=== PATIENT | male | born 1970 | race Caucasian/White ===

== ENCOUNTER 2016-12-07 22:09 | Observation (INO) | payer OTHER ==
[~2016-12-07] VITALS: Ht 180.3 cm; Wt 226.7 kg
[~2016-12-07 22:09] MED LIST: ADULT LOW DOSE81 M1 PO; ADVAIR 250/501 DISK IH; ANAPROX DS550 M1 PO; ASPIRIN81 M1 PO; Advair 250/50 Diskus IH; BENTYL20 MG PO; DICYCLOMINE HCL10 MG PO; DIOVAN80 MG PO; DOXYCYCLINE HY100 MG PO; FLEXERIL10 MG PO; Ferrous Gluconate PO; HYDROCHLOROTHIA25 MG PO; IBUPROFEN800 MG PO; INDOMETHACIN25 MG PO; K-DUR20 MEQ PO; KLOR-CON M2020 MEQ PO; KLOR-CON20 MEQ PO; LASIX2 MG/1 ML PO; LASIX40 MG PO; METFORMIN HCL1000 MG PO; METFORMIN HCL500 MG PO; METOCLOPRAMIDE10 MG PO; METOPROLOL SUCC50 MG PO; METOPROLOL TAR100 MG PO; NAPROSYN500 MG PO; PANTOPRAZOLE SO40 MG PO; PEPCID20 MG PO; POTASSIUM20 MEQ/11 PO; PRAVACHOL10 MG PO; PRAVASTATIN SOD40 MG PO; PREDNISONE10 MG PO; PREDNISONE20 M1 PO; PREDNISONE5 MG PO; PREDNISONE50 MG PO; PROTONIX40 MG PO; SPIRONOLACTONE25 MG PO; TOPROL XL50 MG PO; TYLENOL WITH C1 EACH PO; ZANTAC150 MG PO; ZOFRAN8 MG PO
[2016-12-07 23:19] LABS: HEMATOCRIT 38.1 % (38.0-50.0); MCH 25.5 PG (29.0-34.0); MCHC 32.5 G/DL (30.0-36.0); MCV 78.2 FL (86-99); MEAN PLAT.VOLUME 10.5 uM^3 (9.0-12.4); PLATELET COUNT 228 K/uL (156-360); RBC DIS.WIDTH-CV 15.7 % (11.8-14.6); RBC DIS.WIDTH-SD 43.3 % (39-53); RED BLOOD COUNT 4.87 M/uL (4.00-5.50); WHITE BLOOD COUNT 9.5 K/uL (4.1-10.2)
[2016-12-07 23:33] LABS: CHLORIDE 103 mEq/L (99-109); SODIUM 138 mEq/L (136-147)
[2016-12-07 23:35] LABS: GLUCOSE 107 mg/dL (70-99)
[2016-12-07 23:36] LABS: ANION GAP 12 MEQ/L (2-14)
[2016-12-07 23:37] LABS: TOTAL BILIRUBIN 0.5 mg/dL (0.0-1.0)
[2016-12-07 23:39] LABS: ALKALINE PHOSPHATASE 86 IU/L (3-129); GFR ESTIMATE (CALCULATED) > 59 mL/min/
[2016-12-07 23:40] LABS: UREA NITROGEN (BUN) 13 mg/dL (9-23)
[2016-12-07 23:41] LABS: DIRECT BILIRUBIN 0.2 mg/dL (0.0-0.3); TROP-I INTERPRETATION NEGATIVE; TROPONIN-I 0.02 ng/mL (0.0-0.30)
[2016-12-07 23:42] LABS: LIPASE 33 U/L (1.0-51.0)
[2016-12-08 01:30] LABS: TROP-I INTERPRETATION NEGATIVE; TROPONIN-I < 0.01 ng/mL (0.0-0.30)
[2016-12-08 01:50] VITALS: BP 147/73
[2016-12-08 05:04] VITALS: BP 126/71
[2016-12-08 07:15] LABS: TROP-I INTERPRETATION NEGATIVE; TROPONIN-I < 0.01 ng/mL (0.0-0.30)
[2016-12-08 08:00] VITALS: BP 141/69
[2016-12-08 12:23] LABS: TROP-I INTERPRETATION NEGATIVE; TROPONIN-I < 0.01 ng/mL (0.0-0.30)
[2016-12-08] MEDS ORDERED: NEXIUM40 MG PO (13:28)
== END 2016-12-08 14:06 | disposition home or self-care (01) ==
LOC: EME 22:09 → EDOF 12-08 00:20 → 5WEST 12-08 01:13
PROVIDERS: Emergency Medicine; Physician Assistant
DX: R07.9 Chest pain, unspecified (principal); R10.13 Epigastric pain; L25.9 Unspecified contact dermatitis, unspecified cause; G89.29 Other chronic pain; K21.9 Gastro-esophageal reflux disease without esophagitis; I10 Essential (primary) hypertension; E11.9 Type 2 diabetes mellitus without complications; D86.0 Sarcoidosis of lung; G47.33 Obstructive sleep apnea (adult) (pediatric); D53.9 Nutritional anemia, unspecified; E66.01 Morbid (severe) obesity due to excess calories; Z68.44 Body mass index [BMI] 60.0-69.9, adult; Z82.49 Family history of ischemic heart disease and other diseases of the circulatory system; Z79.82 Long term (current) use of aspirin; Z88.0 Allergy status to penicillin; Z88.8 Allergy status to other drugs, medicaments and biological substances
CPT/HCPCS: 71020; 80048; 80076; 83690; 84484; 85027; 93005; 99281; 99285; G0378; J1200; J1650

== ENCOUNTER 2016-12-15 12:35 | Emergency (ER) | payer OTHER ==
[~2016-12-15] VITALS: Ht 180.3 cm; Wt 219.8 kg
[~2016-12-15 12:35] MED LIST changes: +NEXIUM40 MG PO
[2016-12-15 13:49] LABS: HEMATOCRIT 38.1 % (38.0-50.0); MCH 25.5 PG (29.0-34.0); MCHC 33.1 G/DL (30.0-36.0); MCV 77.1 FL (86-99); MEAN PLAT.VOLUME 10.4 uM^3 (9.0-12.4); PLATELET COUNT 194 K/uL (156-360); RBC DIS.WIDTH-CV 16.2 % (11.8-14.6); RBC DIS.WIDTH-SD 43.8 % (39-53); RED BLOOD COUNT 4.94 M/uL (4.00-5.50); WHITE BLOOD COUNT 9.6 K/uL (4.1-10.2)
[2016-12-15 13:54] LABS: CHLORIDE 103 mEq/L (99-109); POTASSIUM 4.1 mEq/L (3.7-5.4); SODIUM 138 mEq/L (136-147)
[2016-12-15 13:56] LABS: GLUCOSE 97 mg/dL (70-99)
[2016-12-15 13:57] LABS: ANION GAP 9 MEQ/L (2-14)
[2016-12-15 14:00] LABS: GFR ESTIMATE (CALCULATED) > 59 mL/min/
[2016-12-15 14:01] LABS: UREA NITROGEN (BUN) 12 mg/dL (9-23)
[2016-12-15 14:04] LABS: TROP-I INTERPRETATION NEGATIVE; TROPONIN-I < 0.01 ng/mL (0.0-0.30)
[2016-12-15 16:51] VITALS: BP 168/84
== END 2016-12-15 16:30 | disposition home or self-care (01) ==
LOC: EME 12:35
DX: E11.43 Type 2 diabetes mellitus with diabetic autonomic (poly)neuropathy (principal); K21.9 Gastro-esophageal reflux disease without esophagitis; J45.909 Unspecified asthma, uncomplicated; I10 Essential (primary) hypertension; D86.9 Sarcoidosis, unspecified; E66.01 Morbid (severe) obesity due to excess calories; Z68.44 Body mass index [BMI] 60.0-69.9, adult; G47.30 Sleep apnea, unspecified
CPT/HCPCS: 71020; 80048; 84484; 85027; 93005; 99281; 99284

== ENCOUNTER 2017-01-06 06:28 | Emergency (ER) | payer SELFPAY ==
[~2017-01-06] VITALS: Ht 180.3 cm; Wt 220.0 kg
[2017-01-06] MEDS ORDERED: PERCOCET 5/31 TABLET PO (08:53)
[2017-01-06] MEDS ORDERED: NAPROXEN500 MG PO (09:18)
[2017-01-06 09:34] VITALS: BP 177/91
== END 2017-01-06 09:35 | disposition home or self-care (01) ==
LOC: EXP 06:28 → EME 06:28 → EXP 09:35
PROC: 2W3TX1Z Immobilization of Left Foot using Splint (ICD-10-PCS; principal; 2017-01-06)
DX: S92.145A Nondisplaced dome fracture of left talus, initial encounter for closed fracture (principal); S83.412A Sprain of medial collateral ligament of left knee, initial encounter; E11.9 Type 2 diabetes mellitus without complications; I10 Essential (primary) hypertension; W00.0XXA Fall on same level due to ice and snow, initial encounter; Z88.1 Allergy status to other antibiotic agents; Z88.0 Allergy status to penicillin
CPT/HCPCS: 73502; 73564; 73590; 73610; 99281; 99284; J1885

== ENCOUNTER 2017-02-15 20:09 | Emergency (ER) | payer OTHER ==
[~2017-02-15] VITALS: Ht 180.3 cm; Wt 220.4 kg
[~2017-02-15 20:09] MED LIST changes: +NAPROXEN500 MG PO; +PERCOCET 5/31 TABLET PO
[2017-02-15 20:35] LABS: HEMATOCRIT 38.5 % (38.0-50.0); MCH 25.1 PG (29.0-34.0); MCHC 31.9 G/DL (30.0-36.0); MCV 78.6 FL (86-99); MEAN PLAT.VOLUME 10.1 uM^3 (9.0-12.4); PLATELET COUNT 233 K/uL (156-360); RBC DIS.WIDTH-CV 15.9 % (11.8-14.6); RBC DIS.WIDTH-SD 44.9 % (39-53); WHITE BLOOD COUNT 10.7 K/uL (4.1-10.2)
[2017-02-15 20:45] LABS: CHLORIDE 103 mEq/L (99-109); POTASSIUM 3.9 mEq/L (3.7-5.4); SODIUM 137 mEq/L (136-147)
[2017-02-15 20:47] LABS: GLUCOSE 143 mg/dL (70-99)
[2017-02-15] MEDS ORDERED: KLOR-CON20 MEQ PO (20:47)
[2017-02-15 20:48] LABS: ANION GAP 13 MEQ/L (2-14)
[2017-02-15] MEDS ORDERED: Mylanta (20:50)
[2017-02-15 20:51] LABS: UREA NITROGEN (BUN) 14 mg/dL (9-23)
[2017-02-15 20:54] LABS: GFR ESTIMATE (CALCULATED) > 59 mL/min/
[2017-02-15 20:55] LABS: TROP-I INTERPRETATION NEGATIVE; TROPONIN-I < 0.01 ng/mL (0.0-0.30)
[2017-02-15 21:05] LABS: D-DIMER ELISA 0.74 mg/L FEU (< 0.57)
[2017-02-15 21:39] LABS: INFLUENZA A VIRAL ANTIGEN NEGATIVE; INFLUENZA B VIRAL ANTIGEN NEGATIVE
[2017-02-15] MEDS ORDERED: MOTRIN800 MG PO (23:32)
[2017-02-15] MEDS ORDERED: ZITHROMAX500 MG PO (23:32)
[2017-02-15] MEDS ORDERED: ROBITUSSIN AC,T10 ML PO (23:32)
[2017-02-15 23:56] VITALS: BP 153/66
== END 2017-02-15 23:58 | disposition left against medical advice (07) ==
LOC: EME 20:09
PROVIDERS: Emergency Medicine
DX: J06.9 Acute upper respiratory infection, unspecified (principal); R07.81 Pleurodynia; J45.909 Unspecified asthma, uncomplicated; I10 Essential (primary) hypertension; K21.9 Gastro-esophageal reflux disease without esophagitis; D86.9 Sarcoidosis, unspecified; E66.01 Morbid (severe) obesity due to excess calories; Z68.44 Body mass index [BMI] 60.0-69.9, adult; G47.30 Sleep apnea, unspecified
CPT/HCPCS: 71020; 80048; 84484; 85027; 85379; 87502; 93005; 93970; 99281; 99285

== ENCOUNTER 2017-03-05 19:28 | Emergency (ER) | payer OTHER ==
[~2017-03-05] VITALS: Ht 180.3 cm; Wt 100.4 kg
[~2017-03-05 19:28] MED LIST changes: +MOTRIN800 MG PO; +Mylanta; +ROBITUSSIN AC,T10 ML PO; +ZITHROMAX500 MG PO
[2017-03-05 20:04] LABS: HEMATOCRIT 40.9 % (38.0-50.0); MCV 78.2 FL (86-99); MEAN PLAT.VOLUME 9.8 uM^3 (9.0-12.4); PLATELET COUNT 233 K/uL (156-360); RBC DIS.WIDTH-CV 15.6 % (11.8-14.6); RBC DIS.WIDTH-SD 44.1 % (39-53); RED BLOOD COUNT 5.23 M/uL (4.00-5.50); WHITE BLOOD COUNT 9.6 K/uL (4.1-10.2)
[2017-03-05 20:16] LABS: CHLORIDE 104 mEq/L (99-109); POTASSIUM 4.1 mEq/L (3.7-5.4); SODIUM 138 mEq/L (136-147)
[2017-03-05 20:17] LABS: GLUCOSE 137 mg/dL (70-99)
[2017-03-05 20:19] LABS: ANION GAP 10 MEQ/L (2-14)
[2017-03-05 20:21] LABS: GFR ESTIMATE (CALCULATED) > 59 mL/min/
[2017-03-05 20:22] LABS: UREA NITROGEN (BUN) 12 mg/dL (9-23)
[2017-03-05 20:29] LABS: TROP-I INTERPRETATION NEGATIVE; TROPONIN-I < 0.01 ng/mL (0.0-0.30)
[2017-03-05] MEDS ORDERED: NAPROSYN500 MG PO (20:40)
[2017-03-05] MEDS ORDERED: FLEXERIL10 MG PO (20:40)
[2017-03-05 20:53] VITALS: BP 160/98
== END 2017-03-05 20:57 | disposition home or self-care (01) ==
LOC: EME 19:28
DX: S46.002A Unspecified injury of muscle(s) and tendon(s) of the rotator cuff of left shoulder, initial encounter (principal); I10 Essential (primary) hypertension; X50.9XXA Other and unspecified overexertion or strenuous movements or postures, initial encounter; Y92.810 Car as the place of occurrence of the external cause; Z88.1 Allergy status to other antibiotic agents; Z88.0 Allergy status to penicillin; Z88.8 Allergy status to other drugs, medicaments and biological substances
CPT/HCPCS: 71020; 80048; 84484; 85027; 93005; 99281; 99283

== ENCOUNTER 2017-03-25 10:20 | Emergency (ER) | payer OTHER ==
[~2017-03-25] VITALS: Ht 180.3 cm; Wt 222.2 kg
[2017-03-25 10:40] LABS: HEMATOCRIT 39.7 % (38.0-50.0); MCH 25.1 PG (29.0-34.0); MCV 78.6 FL (86-99); MEAN PLAT.VOLUME 9.6 uM^3 (9.0-12.4); PLATELET COUNT 216 K/uL (156-360); RBC DIS.WIDTH-CV 15.8 % (11.8-14.6); RBC DIS.WIDTH-SD 44.6 % (39-53); RED BLOOD COUNT 5.05 M/uL (4.00-5.50); WHITE BLOOD COUNT 9.1 K/uL (4.1-10.2)
[2017-03-25 11:04] LABS: TROP-I INTERPRETATION NEGATIVE; TROPONIN-I < 0.01 ng/mL (0.0-0.30)
[2017-03-25 11:05] LABS: CHLORIDE 104 mEq/L (99-109); POTASSIUM 4.1 mEq/L (3.7-5.4); SODIUM 137 mEq/L (136-147)
[2017-03-25 11:07] LABS: GLUCOSE 164 mg/dL (70-99)
[2017-03-25 11:08] LABS: ANION GAP 9 MEQ/L (2-14)
[2017-03-25 11:11] LABS: GFR ESTIMATE (CALCULATED) > 59 mL/min/
[2017-03-25 11:12] LABS: UREA NITROGEN (BUN) 12 mg/dL (9-23)
[2017-03-25 12:22] VITALS: BP 138/90
== END 2017-03-25 12:39 | disposition home or self-care (01) ==
LOC: EME 10:20
DX: R07.89 Other chest pain (principal); E66.01 Morbid (severe) obesity due to excess calories; Z68.44 Body mass index [BMI] 60.0-69.9, adult; I10 Essential (primary) hypertension; J45.909 Unspecified asthma, uncomplicated; Z88.1 Allergy status to other antibiotic agents; Z88.8 Allergy status to other drugs, medicaments and biological substances; Z88.0 Allergy status to penicillin
CPT/HCPCS: 71020; 80048; 84484; 85027; 93005; 99281; 99284

== ENCOUNTER 2017-04-15 13:04 | Emergency (ER) | payer OTHER ==
[~2017-04-15] VITALS: Ht 180.3 cm; Wt 224.3 kg
[2017-04-15 14:08] LABS: HEMATOCRIT 38.7 % (38.0-50.0); MCH 24.8 PG (29.0-34.0); MCHC 31.3 G/DL (30.0-36.0); MCV 79.3 FL (86-99); MEAN PLAT.VOLUME 10.3 uM^3 (9.0-12.4); PLATELET COUNT 214 K/uL (156-360); RBC DIS.WIDTH-CV 15.3 % (11.8-14.6); RBC DIS.WIDTH-SD 43.8 % (39-53); RED BLOOD COUNT 4.88 M/uL (4.00-5.50); WHITE BLOOD COUNT 7.5 K/uL (4.1-10.2)
[2017-04-15 14:20] LABS: CHLORIDE 106 mEq/L (99-109); POTASSIUM 3.6 mEq/L (3.7-5.4); SODIUM 139 mEq/L (136-147)
[2017-04-15 14:21] LABS: GLUCOSE 155 mg/dL (70-99)
[2017-04-15 14:23] LABS: ANION GAP 10 MEQ/L (2-14)
[2017-04-15 14:25] LABS: GFR ESTIMATE (CALCULATED) > 59 mL/min/
[2017-04-15 14:26] LABS: UREA NITROGEN (BUN) 14 mg/dL (9-23)
[2017-04-15 14:30] LABS: TROP-I INTERPRETATION NEGATIVE; TROPONIN-I < 0.01 ng/mL (0.0-0.30)
[2017-04-15] MEDS ORDERED: INDOCIN50 MG PO (15:42)
[2017-04-15 16:13] VITALS: BP 170/84
== END 2017-04-15 16:14 | disposition home or self-care (01) ==
LOC: EME 13:04
DX: S20.219A Contusion of unspecified front wall of thorax, initial encounter (principal); S29.011A Strain of muscle and tendon of front wall of thorax, initial encounter; M75.82 Other shoulder lesions, left shoulder; W01.0XXA Fall on same level from slipping, tripping and stumbling without subsequent striking against object, initial encounter; J45.909 Unspecified asthma, uncomplicated; I10 Essential (primary) hypertension; K21.9 Gastro-esophageal reflux disease without esophagitis; D86.9 Sarcoidosis, unspecified; G47.30 Sleep apnea, unspecified
CPT/HCPCS: 71020; 80048; 84484; 85027; 93005; 99281; 99284

== ENCOUNTER 2017-05-17 22:04 | Emergency (ER) | payer OTHER ==
[~2017-05-17] VITALS: Ht 180.3 cm; Wt 227.6 kg
[~2017-05-17 22:04] MED LIST changes: +INDOCIN50 MG PO
[2017-05-17 22:51] LABS: HEMATOCRIT 35.9 % (38.0-50.0); MCH 25.1 PG (29.0-34.0); MCHC 31.8 G/DL (30.0-36.0); MCV 79.1 FL (86-99); MEAN PLAT.VOLUME 9.8 uM^3 (9.0-12.4); PLATELET COUNT 191 K/uL (156-360); RBC DIS.WIDTH-CV 15.9 % (11.8-14.6); RBC DIS.WIDTH-SD 45.6 % (39-53); RED BLOOD COUNT 4.54 M/uL (4.00-5.50); WHITE BLOOD COUNT 7.8 K/uL (4.1-10.2)
[2017-05-17 23:01] LABS: CHLORIDE 106 mEq/L (99-109); POTASSIUM 3.8 mEq/L (3.7-5.4); SODIUM 138 mEq/L (136-147)
[2017-05-17 23:03] LABS: GLUCOSE 145 mg/dL (70-99)
[2017-05-17 23:04] LABS: ANION GAP 9 MEQ/L (2-14)
[2017-05-17 23:07] LABS: GFR ESTIMATE (CALCULATED) > 59 mL/min/
[2017-05-17 23:08] LABS: UREA NITROGEN (BUN) 13 mg/dL (9-23)
[2017-05-17 23:11] LABS: TROP-I INTERPRETATION NEGATIVE; TROPONIN-I < 0.01 ng/mL (0.0-0.30)
[2017-05-18 00:36] LABS: TROP-I INTERPRETATION NEGATIVE; TROPONIN-I < 0.01 ng/mL (0.0-0.30)
[2017-05-18] MEDS ORDERED: NAPROSYN500 MG PO (00:58)
[2017-05-18 01:24] VITALS: BP 166/87
== END 2017-05-18 01:25 | disposition home or self-care (01) ==
LOC: EME 22:04
PROVIDERS: Emergency Medicine
DX: S46.912A Strain of unspecified muscle, fascia and tendon at shoulder and upper arm level, left arm, initial encounter (principal); X50.0XXA Overexertion from strenuous movement or load, initial encounter; I10 Essential (primary) hypertension; J45.909 Unspecified asthma, uncomplicated; D86.9 Sarcoidosis, unspecified; K21.9 Gastro-esophageal reflux disease without esophagitis; E66.01 Morbid (severe) obesity due to excess calories; Z68.44 Body mass index [BMI] 60.0-69.9, adult; F32.9 Major depressive disorder, single episode, unspecified; G43.909 Migraine, unspecified, not intractable, without status migrainosus; F19.10 Other psychoactive substance abuse, uncomplicated; G47.30 Sleep apnea, unspecified; K31.84 Gastroparesis; E55.9 Vitamin D deficiency, unspecified
CPT/HCPCS: 71010; 80048; 84484; 85027; 93005; 99281; 99285

== ENCOUNTER 2017-05-31 07:06 | Emergency (ER) | payer OTHER ==
[~2017-05-31] VITALS: Ht 180.3 cm; Wt 223.6 kg
[2017-05-31] MEDS ORDERED: VALIUM5 MG PO (09:56)
[2017-05-31] MEDS ORDERED: MOTRIN600 MG PO (09:56)
[2017-05-31 10:13] VITALS: BP 179/92
== END 2017-05-31 10:15 | disposition home or self-care (01) ==
LOC: EME 07:06
DX: S46.812A Strain of other muscles, fascia and tendons at shoulder and upper arm level, left arm, initial encounter (principal); M54.2 Cervicalgia; D86.9 Sarcoidosis, unspecified; K21.9 Gastro-esophageal reflux disease without esophagitis; I10 Essential (primary) hypertension; J45.909 Unspecified asthma, uncomplicated; G47.30 Sleep apnea, unspecified; E66.01 Morbid (severe) obesity due to excess calories; Z68.44 Body mass index [BMI] 60.0-69.9, adult
CPT/HCPCS: 71020; 99281; 99283

== ENCOUNTER 2017-06-09 09:57 | Emergency (ER) | payer OTHER ==
[~2017-06-09] VITALS: Ht 180.3 cm; Wt 226.0 kg
[~2017-06-09 09:57] MED LIST changes: +MOTRIN600 MG PO; +VALIUM5 MG PO
[2017-06-09 11:01] LABS: HEMATOCRIT 36.7 % (38.0-50.0); MCH 25.5 PG (29.0-34.0); MCHC 32.4 G/DL (30.0-36.0); MCV 78.6 FL (86-99); MEAN PLAT.VOLUME 10.5 uM^3 (9.0-12.4); PLATELET COUNT 191 K/uL (156-360); RBC DIS.WIDTH-CV 15.9 % (11.8-14.6); RBC DIS.WIDTH-SD 44.5 % (39-53); RED BLOOD COUNT 4.67 M/uL (4.00-5.50); WHITE BLOOD COUNT 8.2 K/uL (4.1-10.2)
[2017-06-09 11:16] LABS: CHLORIDE 107 mEq/L (99-109); POTASSIUM 4.1 mEq/L (3.7-5.4); SODIUM 139 mEq/L (136-147)
[2017-06-09 11:18] LABS: GLUCOSE 99 mg/dL (70-99)
[2017-06-09 11:19] LABS: ANION GAP 9 MEQ/L (2-14)
[2017-06-09 11:22] LABS: GFR ESTIMATE (CALCULATED) > 59 mL/min/; UREA NITROGEN (BUN) 14 mg/dL (9-23)
[2017-06-09 11:24] LABS: TROP-I INTERPRETATION NEGATIVE; TROPONIN-I < 0.01 ng/mL (0.0-0.30)
[2017-06-09 13:53] LABS: TROP-I INTERPRETATION NEGATIVE; TROPONIN-I < 0.01 ng/mL (0.0-0.30)
[2017-06-09 15:58] VITALS: BP 161/73
== END 2017-06-09 15:59 | disposition home or self-care (01) ==
LOC: EME 09:57
PROVIDERS: Emergency Medicine
DX: R07.9 Chest pain, unspecified (principal); G43.909 Migraine, unspecified, not intractable, without status migrainosus; D86.9 Sarcoidosis, unspecified; I10 Essential (primary) hypertension; E66.01 Morbid (severe) obesity due to excess calories; F32.9 Major depressive disorder, single episode, unspecified; J45.909 Unspecified asthma, uncomplicated; K21.9 Gastro-esophageal reflux disease without esophagitis; Z88.1 Allergy status to other antibiotic agents; Z88.0 Allergy status to penicillin
CPT/HCPCS: 71020; 78582; 80048; 84484; 85027; 93005; 99281; 99284; A9540; A9567; J0780; J1200; J1885

== ENCOUNTER 2017-06-19 11:20 | Emergency (ER) | payer OTHER ==
[~2017-06-19] VITALS: Ht 180.3 cm; Wt 225.3 kg
[2017-06-19 12:07] LABS: HEMATOCRIT 38.3 % (38.0-50.0); MCH 25.7 PG (29.0-34.0); MCHC 32.4 G/DL (30.0-36.0); MCV 79.3 FL (86-99); MEAN PLAT.VOLUME 10.1 uM^3 (9.0-12.4); PLATELET COUNT 208 K/uL (156-360); RBC DIS.WIDTH-CV 16.3 % (11.8-14.6); RBC DIS.WIDTH-SD 46.4 % (39-53); RED BLOOD COUNT 4.83 M/uL (4.00-5.50)
[2017-06-19 12:14] LABS: CHLORIDE 105 mEq/L (99-109); POTASSIUM 4.2 mEq/L (3.7-5.4); SODIUM 138 mEq/L (136-147)
[2017-06-19 12:16] LABS: GLUCOSE 103 mg/dL (70-99)
[2017-06-19 12:17] LABS: ANION GAP 9 MEQ/L (2-14)
[2017-06-19 12:20] LABS: GFR ESTIMATE (CALCULATED) > 59 mL/min/
[2017-06-19 12:21] LABS: UREA NITROGEN (BUN) 13 mg/dL (9-23)
[2017-06-19 12:24] LABS: TROP-I INTERPRETATION NEGATIVE; TROPONIN-I 0.02 ng/mL (0.0-0.30)
[2017-06-19 14:22] LABS: LIPASE 26 U/L (1.0-51.0)
[2017-06-19] MEDS ORDERED: MAALOX MAXIMUM355 ML PO (16:07)
[2017-06-19] MEDS ORDERED: PRILOSEC20 MG PO (16:07)
[2017-06-19 16:30] VITALS: BP 139/62
== END 2017-06-19 17:19 | disposition home or self-care (01) ==
LOC: EME 11:20
DX: R10.13 Epigastric pain (principal); R10.12 Left upper quadrant pain; K21.9 Gastro-esophageal reflux disease without esophagitis; K31.84 Gastroparesis; I10 Essential (primary) hypertension
CPT/HCPCS: 71020; 80048; 83690; 84484; 85027; 93005; 99281; 99284

== ENCOUNTER 2017-07-04 22:32 | Emergency (ER) | payer OTHER ==
[~2017-07-04] VITALS: Ht 180.3 cm; Wt 225.4 kg
[~2017-07-04 22:32] MED LIST changes: +MAALOX MAXIMUM355 ML PO; +PRILOSEC20 MG PO
[2017-07-04 23:18] LABS: HEMATOCRIT 35.9 % (38.0-50.0); MCH 25.7 PG (29.0-34.0); MCHC 32.6 G/DL (30.0-36.0); MCV 78.7 FL (86-99); MEAN PLAT.VOLUME 10.3 uM^3 (9.0-12.4); PLATELET COUNT 200 K/uL (156-360); RBC DIS.WIDTH-CV 15.9 % (11.8-14.6); RBC DIS.WIDTH-SD 45.1 % (39-53); RED BLOOD COUNT 4.56 M/uL (4.00-5.50); WHITE BLOOD COUNT 8.8 K/uL (4.1-10.2)
[2017-07-04 23:27] LABS: CHLORIDE 105 mEq/L (99-109); POTASSIUM 3.5 mEq/L (3.7-5.4); SODIUM 138 mEq/L (136-147)
[2017-07-04 23:29] LABS: GLUCOSE 156 mg/dL (70-99)
[2017-07-04 23:30] LABS: ANION GAP 9 MEQ/L (2-14)
[2017-07-04 23:33] LABS: GFR ESTIMATE (CALCULATED) > 59 mL/min/
[2017-07-04 23:34] LABS: UREA NITROGEN (BUN) 13 mg/dL (9-23)
[2017-07-04 23:41] LABS: TROP-I INTERPRETATION NEGATIVE; TROPONIN-I < 0.01 ng/mL (0.0-0.30)
[2017-07-05] MEDS ORDERED: PREDNISONE50 MG PO (00:10)
[2017-07-05 00:57] VITALS: BP 118/63
== END 2017-07-05 00:58 | disposition home or self-care (01) ==
LOC: EME → EDBD 22:32 → EME 07-05 00:58
DX: J45.909 Unspecified asthma, uncomplicated (principal); J44.9 Chronic obstructive pulmonary disease, unspecified; I10 Essential (primary) hypertension; E66.01 Morbid (severe) obesity due to excess calories; Z68.44 Body mass index [BMI] 60.0-69.9, adult
CPT/HCPCS: 71020; 80048; 84484; 85027; 93005; 94640; 99281; 99284; J7512

== ENCOUNTER 2017-07-08 07:52 | Emergency (ER) | payer OTHER ==
[~2017-07-08] VITALS: Ht 180.3 cm; Wt 222.4 kg
[2017-07-08 09:13] LABS: EOSINOPHIL (%) 0 % (0-5); HEMATOCRIT 38.5 % (38.0-50.0); IMMATURE GRANULOCYTE COUNT 0.1 K/uL; INSTRUMENT ABS NEUTROPHIL CT 8.4 K/uL; LYMPHOCYTE COUNT 2.3 K/uL (1.0-2.8); MCH 25.6 PG (29.0-34.0); MCHC 32.7 G/DL (30.0-36.0); MCV 78.3 FL (86-99); MEAN PLAT.VOLUME 10.4 uM^3 (9.0-12.4); MONOCYTE (%) 6.1 % (3-12); MONOCYTE COUNT 0.7 K/uL (0-0.8); NEUTROPHIL (%) 72.9 % (45-76); NEUTROPHIL COUNT 8.4 K/uL (1.8-6.4); PLATELET COUNT 210 K/uL (156-360); RBC DIS.WIDTH-CV 15.4 % (11.8-14.6); RED BLOOD COUNT 4.92 M/uL (4.00-5.50); WHITE BLOOD COUNT 11.5 K/uL (4.1-10.2)
[2017-07-08 09:26] LABS: CHLORIDE 102 mEq/L (99-109); POTASSIUM 4.2 mEq/L (3.7-5.4); SODIUM 135 mEq/L (136-147)
[2017-07-08 09:27] LABS: GLUCOSE 113 mg/dL (70-99)
[2017-07-08 09:29] LABS: ANION GAP 9 MEQ/L (2-14)
[2017-07-08 09:31] LABS: GFR ESTIMATE (CALCULATED) > 59 mL/min/
[2017-07-08 09:32] LABS: UREA NITROGEN (BUN) 11 mg/dL (9-23)
[2017-07-08 09:36] LABS: TROP-I INTERPRETATION NEGATIVE; TROPONIN-I < 0.01 ng/mL (0.0-0.30)
[2017-07-08] MEDS ORDERED: MOTRIN800 MG PO (10:57)
[2017-07-08 11:19] VITALS: BP 155/82
== END 2017-07-08 11:14 | disposition home or self-care (01) ==
LOC: EME 07:52
PROVIDERS: Emergency Medicine
DX: R07.89 Other chest pain (principal); I10 Essential (primary) hypertension; D86.9 Sarcoidosis, unspecified; E78.00 Pure hypercholesterolemia, unspecified; K31.84 Gastroparesis
CPT/HCPCS: 71010; 80048; 84484; 85025; 93005; 99281; 99283

== ENCOUNTER 2017-08-06 19:53 | Emergency (ER) | payer OTHER ==
[~2017-08-06] VITALS: Ht 180.3 cm; Wt 223.9 kg
[2017-08-06 21:37] LABS: HEMATOCRIT 38.4 % (38.0-50.0); MCH 25.6 PG (29.0-34.0); MCV 79.8 FL (86-99); MEAN PLAT.VOLUME 10.5 uM^3 (9.0-12.4); PLATELET COUNT 217 K/uL (156-360); RBC DIS.WIDTH-CV 15.7 % (11.8-14.6); RBC DIS.WIDTH-SD 45.5 % (39-53); RED BLOOD COUNT 4.81 M/uL (4.00-5.50); WHITE BLOOD COUNT 9.4 K/uL (4.1-10.2)
[2017-08-06 21:48] LABS: CHLORIDE 105 mEq/L (99-109); POTASSIUM 3.9 mEq/L (3.7-5.4); SODIUM 139 mEq/L (136-147)
[2017-08-06 21:49] LABS: GLUCOSE 140 mg/dL (70-99)
[2017-08-06 21:51] LABS: ANION GAP 14 MEQ/L (2-14)
[2017-08-06 21:53] LABS: GFR ESTIMATE (CALCULATED) > 59 mL/min/
[2017-08-06 21:54] LABS: UREA NITROGEN (BUN) 13 mg/dL (9-23)
[2017-08-06 22:03] LABS: TROP-I INTERPRETATION NEGATIVE; TROPONIN-I < 0.01 ng/mL (0.0-0.30)
[2017-08-06 23:42] LABS: TROP-I INTERPRETATION NEGATIVE; TROPONIN-I < 0.01 ng/mL (0.0-0.30)
[2017-08-06] MEDS ORDERED: MELOXICAM15 MG PO (23:53)
[2017-08-07 00:05] VITALS: BP 147/53
== END 2017-08-07 00:16 | disposition home or self-care (01) ==
LOC: EME 19:53
PROVIDERS: Physician Assistant
DX: G89.29 Other chronic pain (principal); R07.9 Chest pain, unspecified; I10 Essential (primary) hypertension; E66.01 Morbid (severe) obesity due to excess calories; Z68.44 Body mass index [BMI] 60.0-69.9, adult; D86.9 Sarcoidosis, unspecified
CPT/HCPCS: 71020; 80048; 84484; 85027; 93005; 99281; 99284

== ENCOUNTER 2017-08-22 19:34 | Emergency (ER) | payer OTHER ==
[~2017-08-22] VITALS: Ht 180.3 cm; Wt 227.2 kg
[~2017-08-22 19:34] MED LIST changes: +MELOXICAM15 MG PO
[2017-08-22 20:16] LABS: HEMATOCRIT 37.5 % (38.0-50.0); MCH 26.1 PG (29.0-34.0); MCHC 32.5 G/DL (30.0-36.0); MCV 80.3 FL (86-99); PLATELET COUNT 188 K/uL (156-360); RBC DIS.WIDTH-CV 15.8 % (11.8-14.6); RBC DIS.WIDTH-SD 45.3 % (39-53); RED BLOOD COUNT 4.67 M/uL (4.00-5.50); WHITE BLOOD COUNT 9.4 K/uL (4.1-10.2)
[2017-08-22 20:26] LABS: ADD MIUA? YES; BILIRUBIN NEGATIVE; BLOOD NEGATIVE; COLOR YELLOW ((YELLOW)); GLUCOSE (STRIP) NEGATIVE; KETONES NEGATIVE; LEUKOCYTES NEGATIVE; NITRITE NEGATIVE; PROTEIN (STRIP) 30; SPECIFIC GRAVITY 1.027 (1.000-1.030)
[2017-08-22 20:26] LABS: CHLORIDE 107 mEq/L (99-109); POTASSIUM 3.7 mEq/L (3.7-5.4); SODIUM 140 mEq/L (136-147)
[2017-08-22 20:28] LABS: GLUCOSE 125 mg/dL (70-99)
[2017-08-22 20:28] LABS: BACTERIA NONE SEEN /HPF; EPITHELIAL CELLS RARE /HPF; MUCUS TRACE /LPF; RED BLOOD CELLS 0-5 /HPF (0-5); UCUL ADDED? NO; WHITE BLOOD CELLS 0-5 /HPF (0-5)
[2017-08-22 20:29] LABS: ANION GAP 13 MEQ/L (2-14)
[2017-08-22 20:30] LABS: TOTAL BILIRUBIN 0.5 mg/dL (0.0-1.0)
[2017-08-22 20:31] LABS: ALKALINE PHOSPHATASE 86 IU/L (3-129)
[2017-08-22 20:32] LABS: GFR ESTIMATE (CALCULATED) > 59 mL/min/
[2017-08-22 20:33] LABS: UREA NITROGEN (BUN) 13 mg/dL (9-23)
[2017-08-22 22:03] LABS: TROP-I INTERPRETATION NEGATIVE; TROPONIN-I < 0.01 ng/mL (0.0-0.30)
[2017-08-23 00:14] VITALS: BP 159/72
== END 2017-08-23 00:14 | disposition home or self-care (01) ==
LOC: EME 19:34
DX: R10.12 Left upper quadrant pain (principal); J45.909 Unspecified asthma, uncomplicated; I10 Essential (primary) hypertension; K21.9 Gastro-esophageal reflux disease without esophagitis; E66.01 Morbid (severe) obesity due to excess calories; F32.9 Major depressive disorder, single episode, unspecified; F41.9 Anxiety disorder, unspecified; Z88.0 Allergy status to penicillin; Z88.8 Allergy status to other drugs, medicaments and biological substances
CPT/HCPCS: 74000; 76770; 80053; 81003; 84484; 85027; 93005; 99281; 99285

== ENCOUNTER 2017-09-28 10:29 | Emergency (ER) | payer OTHER ==
[~2017-09-28] VITALS: Ht 180.3 cm; Wt 226.8 kg
[2017-09-28] MEDS ORDERED: HYCODAN SYRUP480 ML PO (13:06)
[2017-09-28] MEDS ORDERED: DOXYCYCLINE HY100 MG PO (13:06)
[2017-09-28 13:20] VITALS: BP 168/74
== END 2017-09-28 13:21 | disposition home or self-care (01) ==
LOC: EME 10:29
DX: J20.9 Acute bronchitis, unspecified (principal); D86.9 Sarcoidosis, unspecified; J45.909 Unspecified asthma, uncomplicated; I10 Essential (primary) hypertension; F32.9 Major depressive disorder, single episode, unspecified; K21.9 Gastro-esophageal reflux disease without esophagitis; E66.01 Morbid (severe) obesity due to excess calories; F41.9 Anxiety disorder, unspecified; Z88.0 Allergy status to penicillin; Z88.1 Allergy status to other antibiotic agents
CPT/HCPCS: 71020; 93005; 99281; 99284

== ENCOUNTER 2017-10-02 13:13 | Emergency (ER) | payer OTHER ==
[~2017-10-02] VITALS: Ht 180.3 cm; Wt 227.0 kg
[~2017-10-02 13:13] MED LIST changes: +HYCODAN SYRUP480 ML PO
[2017-10-02] MEDS ORDERED: FLEXERIL10 MG PO (15:05)
[2017-10-02 15:53] VITALS: BP 174/88
== END 2017-10-02 15:55 | disposition home or self-care (01) ==
LOC: EME 13:13
DX: R07.89 Other chest pain (principal); S46.912A Strain of unspecified muscle, fascia and tendon at shoulder and upper arm level, left arm, initial encounter; X50.0XXA Overexertion from strenuous movement or load, initial encounter; I10 Essential (primary) hypertension; J45.909 Unspecified asthma, uncomplicated; K21.9 Gastro-esophageal reflux disease without esophagitis; E66.01 Morbid (severe) obesity due to excess calories; F32.9 Major depressive disorder, single episode, unspecified; F41.9 Anxiety disorder, unspecified; D86.9 Sarcoidosis, unspecified; Z88.0 Allergy status to penicillin; Z88.1 Allergy status to other antibiotic agents; Z88.8 Allergy status to other drugs, medicaments and biological substances
CPT/HCPCS: 93005; 99281; 99284

== ENCOUNTER 2017-10-22 19:47 | Emergency (ER) | payer OTHER ==
[~2017-10-22] VITALS: Ht 180.3 cm; Wt 228.0 kg
[2017-10-22 20:38] VITALS: BP 131/98
[2017-10-22 21:11] LABS: HEMATOCRIT 38.6 % (38.0-50.0); MCH 25.9 PG (29.0-34.0); MCHC 32.4 G/DL (30.0-36.0); MCV 79.9 FL (86-99); MEAN PLAT.VOLUME 10.6 uM^3 (9.0-12.4); PLATELET COUNT 223 K/uL (156-360); RBC DIS.WIDTH-CV 15.3 % (11.8-14.6); RED BLOOD COUNT 4.83 M/uL (4.00-5.50); WHITE BLOOD COUNT 9.6 K/uL (4.1-10.2)
[2017-10-22 21:23] LABS: CHLORIDE 105 mEq/L (99-109); POTASSIUM 3.6 mEq/L (3.7-5.4); SODIUM 139 mEq/L (136-147)
[2017-10-22 21:24] LABS: GLUCOSE 154 mg/dL (70-99)
[2017-10-22 21:26] LABS: ANION GAP 11 MEQ/L (2-14)
[2017-10-22 21:28] LABS: GFR ESTIMATE (CALCULATED) > 59 mL/min/
[2017-10-22 21:29] LABS: UREA NITROGEN (BUN) 13 mg/dL (9-23)
[2017-10-22 21:35] LABS: TROP-I INTERPRETATION NEGATIVE; TROPONIN-I < 0.01 ng/mL (0.0-0.30)
[2017-10-22 22:38] LABS: TOTAL BILIRUBIN 0.5 mg/dL (0.0-1.0)
[2017-10-22 22:39] LABS: ALKALINE PHOSPHATASE 89 IU/L (3-129)
[2017-10-22 22:41] LABS: DIRECT BILIRUBIN 0.2 mg/dL (0.0-0.3)
[2017-10-22 22:42] LABS: LIPASE 27 U/L (1.0-51.0)
[2017-10-22] MEDS ORDERED: HYCODAN SYRUP480 ML PO (22:50)
[2017-10-22] MEDS ORDERED: PROVENTIL HFA6.7 GM IH (22:50)
[2017-10-22 23:20] LABS: TROP-I INTERPRETATION NEGATIVE; TROPONIN-I < 0.01 ng/mL (0.0-0.30)
== END 2017-10-23 00:09 | disposition home or self-care (01) ==
LOC: EME 19:47
PROVIDERS: Emergency Medicine
DX: J20.9 Acute bronchitis, unspecified (principal); R07.89 Other chest pain; I10 Essential (primary) hypertension; E66.01 Morbid (severe) obesity due to excess calories; Z68.45 Body mass index [BMI] 70 or greater, adult
CPT/HCPCS: 71020; 80048; 80076; 83690; 84484; 85027; 93005; 94640; 99281; 99284

== ENCOUNTER 2017-10-26 23:23 | Emergency (ER) | payer OTHER ==
[~2017-10-26] VITALS: Ht 180.3 cm; Wt 230.6 kg
[~2017-10-26 23:23] MED LIST changes: +PROVENTIL HFA6.7 GM IH
[2017-10-27 01:24] LABS: EOSINOPHIL (%) 2.1 % (0-5); EOSINOPHIL COUNT 0.2 K/uL (0-0.3); HEMATOCRIT 37.3 % (38.0-50.0); IMMATURE GRANULOCYTE (%) 0.4 % (0.0-0.7); INSTRUMENT ABS NEUTROPHIL CT 4.9 K/uL; MCHC 32.4 G/DL (30.0-36.0); MONOCYTE (%) 8.7 % (3-12); MONOCYTE COUNT 0.8 K/uL (0-0.8); NEUTROPHIL COUNT 4.9 K/uL (1.8-6.4); PLATELET COUNT 195 K/uL (156-360); RBC DIS.WIDTH-CV 15.5 % (11.8-14.6); RBC DIS.WIDTH-SD 44.6 % (39-53); RED BLOOD COUNT 4.66 M/uL (4.00-5.50)
[2017-10-27 01:38] LABS: CHLORIDE 103 mEq/L (99-109); POTASSIUM 3.6 mEq/L (3.7-5.4); SODIUM 138 mEq/L (136-147)
[2017-10-27 01:40] LABS: GLUCOSE 142 mg/dL (70-99)
[2017-10-27 01:41] LABS: ANION GAP 11 MEQ/L (2-14)
[2017-10-27 01:44] LABS: GFR ESTIMATE (CALCULATED) > 59 mL/min/
[2017-10-27 01:45] LABS: UREA NITROGEN (BUN) 15 mg/dL (9-23)
[2017-10-27 01:50] LABS: TROP-I INTERPRETATION NEGATIVE; TROPONIN-I < 0.01 ng/mL (0.0-0.30)
[2017-10-27] MEDS ORDERED: LEVAQUIN500 MG PO (03:16)
[2017-10-27 03:42] VITALS: BP 141/59
== END 2017-10-27 03:43 | disposition home or self-care (01) ==
LOC: EME 23:23
PROVIDERS: Emergency Medicine
DX: R06.02 Shortness of breath (principal); R05 Cough; R50.9 Fever, unspecified; J45.909 Unspecified asthma, uncomplicated; D86.9 Sarcoidosis, unspecified; G47.30 Sleep apnea, unspecified; I10 Essential (primary) hypertension; K21.9 Gastro-esophageal reflux disease without esophagitis; E66.01 Morbid (severe) obesity due to excess calories; Z68.45 Body mass index [BMI] 70 or greater, adult; F41.9 Anxiety disorder, unspecified; F32.9 Major depressive disorder, single episode, unspecified; K31.84 Gastroparesis; Z88.0 Allergy status to penicillin; Z88.8 Allergy status to other drugs, medicaments and biological substances
CPT/HCPCS: 71020; 80048; 83880; 84484; 85025; 93005; 94640; 99281; 99284; J1100

== ENCOUNTER 2017-10-29 19:56 | Emergency (ER) | payer OTHER ==
[~2017-10-29] VITALS: Ht 180.3 cm; Wt 228.6 kg
[~2017-10-29 19:56] MED LIST changes: +LEVAQUIN500 MG PO
[2017-10-29 20:48] LABS: EOSINOPHIL (%) 1.9 % (0-5); EOSINOPHIL COUNT 0.2 K/uL (0-0.3); HEMATOCRIT 38.6 % (38.0-50.0); IMMATURE GRANULOCYTE (%) 0.8 % (0.0-0.7); IMMATURE GRANULOCYTE COUNT 0.1 K/uL; INSTRUMENT ABS NEUTROPHIL CT 5.3 K/uL; LYMPHOCYTE COUNT 2.9 K/uL (1.0-2.8); MCHC 32.4 G/DL (30.0-36.0); MCV 80.2 FL (86-99); MEAN PLAT.VOLUME 10.4 uM^3 (9.0-12.4); MONOCYTE (%) 8.7 % (3-12); MONOCYTE COUNT 0.8 K/uL (0-0.8); NEUTROPHIL (%) 57.3 % (45-76); NEUTROPHIL COUNT 5.3 K/uL (1.8-6.4); PLATELET COUNT 205 K/uL (156-360); RBC DIS.WIDTH-CV 15.3 % (11.8-14.6); RBC DIS.WIDTH-SD 44.4 % (39-53); RED BLOOD COUNT 4.81 M/uL (4.00-5.50); WHITE BLOOD COUNT 9.3 K/uL (4.1-10.2)
[2017-10-29 20:56] LABS: CHLORIDE 103 mEq/L (99-109); D-DIMER ELISA < 150.00 ng/mLDDU (<230); POTASSIUM 3.6 mEq/L (3.7-5.4); SODIUM 139 mEq/L (136-147)
[2017-10-29 20:58] LABS: GLUCOSE 135 mg/dL (70-99)
[2017-10-29 21:00] LABS: ANION GAP 12 MEQ/L (2-14)
[2017-10-29 21:02] LABS: GFR ESTIMATE (CALCULATED) > 59 mL/min/
[2017-10-29 21:03] LABS: UREA NITROGEN (BUN) 14 mg/dL (9-23)
[2017-10-29] MEDS ORDERED: PREDNISONE20 MG PO ×2 (21:20)
[2017-10-29 21:27] VITALS: BP 134/88
== END 2017-10-29 21:28 | disposition home or self-care (01) ==
LOC: EME 19:56
PROVIDERS: Physician Assistant
DX: J06.9 Acute upper respiratory infection, unspecified (principal); D86.9 Sarcoidosis, unspecified; J45.909 Unspecified asthma, uncomplicated; I10 Essential (primary) hypertension; E66.01 Morbid (severe) obesity due to excess calories; Z68.45 Body mass index [BMI] 70 or greater, adult; Z88.0 Allergy status to penicillin; Z88.1 Allergy status to other antibiotic agents
CPT/HCPCS: 71020; 80048; 85025; 85379; 99281; 99285; J7512

== ENCOUNTER 2017-11-03 17:31 | Emergency (ER) | payer OTHER ==
[~2017-11-03] VITALS: Ht 180.3 cm; Wt 227.6 kg
[~2017-11-03 17:31] MED LIST changes: +PREDNISONE20 MG PO
[2017-11-03 18:11] LABS: HEMATOCRIT 37.7 % (38.0-50.0); HEMOGLOBIN 12.4 G/DL (12.5-16.6); MCH 26.1 PG (29.0-34.0); MCHC 32.9 G/DL (30.0-36.0); MCV 79.4 FL (86-99); PLATELET COUNT 214 K/uL (156-360); RBC DIS.WIDTH-CV 15.2 % (11.8-14.6); RBC DIS.WIDTH-SD 43.9 % (39-53); RED BLOOD COUNT 4.75 M/uL (4.00-5.50); WHITE BLOOD COUNT 15.2 K/uL (4.1-10.2)
[2017-11-03 18:22] LABS: CHLORIDE 106 mEq/L (99-109); POTASSIUM 3.6 mEq/L (3.7-5.4); SODIUM 138 mEq/L (136-147)
[2017-11-03 18:24] LABS: GLUCOSE 94 mg/dL (70-99)
[2017-11-03 18:27] LABS: CREATININE 0.8 mg/dL (0.6-1.3); GFR ESTIMATE (CALCULATED) > 59 mL/min/ (58.99-99999)
[2017-11-03 18:28] LABS: UREA NITROGEN (BUN) 17 mg/dL (9-23)
[2017-11-03 18:32] LABS: TROP-I INTERPRETATION NEGATIVE; TROPONIN-I < 0.01 ng/mL (0.0-0.30)
[2017-11-03 19:14] LABS: D-DIMER ELISA < 150.00 ng/mLDDU (<230)
[2017-11-03 19:19] LABS: APPEARANCE SL.HAZY ((CLEAR)); BILIRUBIN NEGATIVE; BLOOD NEGATIVE; COLOR YELLOW ((YELLOW)); GLUCOSE (STRIP) NEGATIVE; KETONES NEGATIVE; LEUKOCYTES NEGATIVE; NITRITE NEGATIVE; PROTEIN (STRIP) NEGATIVE; SPECIFIC GRAVITY 1.021 (1.000-1.030); UROBILINOGEN 0.2 MG/DL (0.2-1.0)
[2017-11-03 19:21] LABS: ALBUMIN 3.6 g/dL (3.2-4.8)
[2017-11-03 19:24] LABS: TOTAL PROTEIN 7.2 g/dL (6.4-8.3)
[2017-11-03 19:26] LABS: TOTAL BILIRUBIN 0.5 mg/dL (0.0-1.0)
[2017-11-03 19:27] LABS: BACTERIA NONE SEEN /HPF; EPITHELIAL CELLS RARE /HPF; MUCUS TRACE /LPF; RED BLOOD CELLS 0-5 /HPF (0-5); WHITE BLOOD CELLS 0-5 /HPF (0-5)
[2017-11-03 19:27] LABS: ALKALINE PHOSPHATASE 86 IU/L (3-129)
[2017-11-03 19:30] LABS: ALT (GPT) 21 IU/L (3-49); AST (GOT) 14 IU/L (2-34); DIRECT BILIRUBIN 0.2 mg/dL (0.0-0.3)
[2017-11-03 19:31] LABS: LIPASE 193 U/L (1.0-51.0)
[2017-11-03 23:06] VITALS: BP 144/68
== END 2017-11-03 23:10 | disposition home or self-care (01) ==
LOC: EME 17:31
PROVIDERS: Emergency Medicine Emergency Medical Services
DX: K85.90 Acute pancreatitis without necrosis or infection, unspecified (principal); K76.0 Fatty (change of) liver, not elsewhere classified; K21.9 Gastro-esophageal reflux disease without esophagitis; J45.909 Unspecified asthma, uncomplicated; G47.30 Sleep apnea, unspecified; D86.9 Sarcoidosis, unspecified; I10 Essential (primary) hypertension; K31.84 Gastroparesis; E66.01 Morbid (severe) obesity due to excess calories; Z68.44 Body mass index [BMI] 60.0-69.9, adult; F41.9 Anxiety disorder, unspecified; F32.9 Major depressive disorder, single episode, unspecified; Z88.0 Allergy status to penicillin; Z88.8 Allergy status to other drugs, medicaments and biological substances
CPT/HCPCS: 71020; 76705; 80048; 80076; 81003; 83690; 84484; 85027; 85379; 93005; 99281; 99285

== ENCOUNTER 2017-11-12 20:02 | Emergency (ER) | payer OTHER ==
[~2017-11-12] VITALS: Ht 180.3 cm; Wt 226.3 kg
[2017-11-12 20:19] VITALS: BP 192/85
[2017-11-12 20:50] LABS: HEMATOCRIT 38.4 % (38.0-50.0); MCH 26.1 PG (29.0-34.0); MCHC 32.8 G/DL (30.0-36.0); MCV 79.5 FL (86-99); MEAN PLAT.VOLUME 10.6 uM^3 (9.0-12.4); PLATELET COUNT 195 K/uL (156-360); RBC DIS.WIDTH-CV 14.9 % (11.8-14.6); RED BLOOD COUNT 4.83 M/uL (4.00-5.50); WHITE BLOOD COUNT 9.5 K/uL (4.1-10.2)
[2017-11-12 21:01] LABS: CHLORIDE 104 mEq/L (99-109); POTASSIUM 3.8 mEq/L (3.7-5.4); SODIUM 137 mEq/L (136-147)
[2017-11-12 21:04] LABS: GLUCOSE 133 mg/dL (70-99)
[2017-11-12 21:05] LABS: ANION GAP 9 MEQ/L (2-14)
[2017-11-12 21:06] LABS: TOTAL BILIRUBIN 0.7 mg/dL (0.0-1.0)
[2017-11-12 21:07] LABS: ALKALINE PHOSPHATASE 82 IU/L (3-129); GFR ESTIMATE (CALCULATED) > 59 mL/min/ (58.99-99999)
[2017-11-12 21:08] LABS: UREA NITROGEN (BUN) 13 mg/dL (9-23)
[2017-11-12 22:30] LABS: LIPASE 27 U/L (1.0-51.0)
== END 2017-11-12 23:01 | disposition home or self-care (01) ==
LOC: EME 20:02 → EXP 20:02
DX: K21.9 Gastro-esophageal reflux disease without esophagitis (principal); I10 Essential (primary) hypertension; J45.909 Unspecified asthma, uncomplicated; F32.9 Major depressive disorder, single episode, unspecified; F41.9 Anxiety disorder, unspecified; D86.9 Sarcoidosis, unspecified; E66.01 Morbid (severe) obesity due to excess calories; Z88.1 Allergy status to other antibiotic agents; Z88.0 Allergy status to penicillin; Z88.8 Allergy status to other drugs, medicaments and biological substances
CPT/HCPCS: 80053; 81003; 83690; 85027; 99281; 99284

== ENCOUNTER 2017-11-14 18:26 | Emergency (ER) | payer OTHER ==
[~2017-11-14] VITALS: Ht 180.3 cm; Wt 223.3 kg
[2017-11-14 19:18] LABS: HEMATOCRIT 37.7 % (38.0-50.0); MCH 25.9 PG (29.0-34.0); MCHC 32.9 G/DL (30.0-36.0); MCV 78.7 FL (86-99); MEAN PLAT.VOLUME 10.4 uM^3 (9.0-12.4); PLATELET COUNT 185 K/uL (156-360); RBC DIS.WIDTH-CV 14.6 % (11.8-14.6); RBC DIS.WIDTH-SD 41.8 % (39-53); RED BLOOD COUNT 4.79 M/uL (4.00-5.50); WHITE BLOOD COUNT 9.3 K/uL (4.1-10.2)
[2017-11-14 19:29] LABS: CHLORIDE 102 mEq/L (99-109); POTASSIUM 3.8 mEq/L (3.7-5.4); SODIUM 137 mEq/L (136-147)
[2017-11-14 19:31] LABS: ADD MIUA? NO; BILIRUBIN NEGATIVE; BLOOD NEGATIVE; COLOR YELLOW ((YELLOW)); GLUCOSE (STRIP) NEGATIVE; KETONES NEGATIVE; LEUKOCYTES NEGATIVE; NITRITE NEGATIVE; PROTEIN (STRIP) NEGATIVE; SPECIFIC GRAVITY 1.018 (1.000-1.030); UCUL ADDED? NO
[2017-11-14 19:32] LABS: ANION GAP 10 MEQ/L (2-14)
[2017-11-14 19:35] LABS: ALKALINE PHOSPHATASE 85 IU/L (3-129); GFR ESTIMATE (CALCULATED) > 59 mL/min/ (58.99-99999)
[2017-11-14 19:36] LABS: UREA NITROGEN (BUN) 12 mg/dL (9-23)
[2017-11-14 19:43] LABS: GLUCOSE 93 mg/dL (70-99); TOTAL BILIRUBIN 1.1 mg/dL (0.0-1.0)
[2017-11-14 20:05] LABS: LIPASE 15 U/L (1.0-51.0)
[2017-11-14] MEDS ORDERED: BENTYL20 MG PO (22:55)
[2017-11-14] MEDS ORDERED: CARAFATE1 GM PO (22:55)
[2017-11-14 23:07] VITALS: BP 182/91
== END 2017-11-14 23:08 | disposition home or self-care (01) ==
LOC: EME 18:26
DX: R10.13 Epigastric pain (principal); E11.43 Type 2 diabetes mellitus with diabetic autonomic (poly)neuropathy; K31.84 Gastroparesis; K21.9 Gastro-esophageal reflux disease without esophagitis; D86.9 Sarcoidosis, unspecified; J45.909 Unspecified asthma, uncomplicated; G47.30 Sleep apnea, unspecified; I10 Essential (primary) hypertension; F41.9 Anxiety disorder, unspecified; F32.9 Major depressive disorder, single episode, unspecified; Z88.0 Allergy status to penicillin; Z88.8 Allergy status to other drugs, medicaments and biological substances
CPT/HCPCS: 76705; 80053; 81003; 83690; 85027; 99281; 99284

== ENCOUNTER 2017-11-24 21:11 | Observation (INO) | payer OTHER ==
[~2017-11-24] VITALS: Ht 180.3 cm; Wt 226.0 kg
[~2017-11-24 21:11] MED LIST changes: +CARAFATE1 GM PO
[2017-11-24 21:42] LABS: HEMATOCRIT 37.1 % (38.0-50.0); HEMOGLOBIN 12.1 G/DL (12.5-16.6); MCH 25.7 PG (29.0-34.0); MCHC 32.6 G/DL (30.0-36.0); MCV 78.8 FL (86-99); PLATELET COUNT 209 K/uL (156-360); RED BLOOD COUNT 4.71 M/uL (4.00-5.50); WHITE BLOOD COUNT 8.4 K/uL (4.1-10.2)
[2017-11-24 21:54] LABS: CHLORIDE 105 mEq/L (99-109); POTASSIUM 3.7 mEq/L (3.7-5.4); SODIUM 140 mEq/L (136-147)
[2017-11-24 21:55] LABS: GLUCOSE 113 mg/dL (70-99)
[2017-11-24 21:59] LABS: CREATININE 1.1 mg/dL (0.6-1.3); GFR ESTIMATE (CALCULATED) > 59 mL/min/ (58.99-99999)
[2017-11-24 22:00] LABS: UREA NITROGEN (BUN) 11 mg/dL (9-23)
[2017-11-24 22:04] LABS: TROP-I INTERPRETATION NEGATIVE; TROPONIN-I < 0.01 ng/mL (0.0-0.30)
[2017-11-25] MEDS ORDERED: OMEPRAZOLE40 M1 PO (00:05)
[2017-11-25] MEDS ORDERED: ASPIR 8181 M1 PO (00:06)
[2017-11-25] MEDS ORDERED: ERGOCALCIF50000 UNIT PO (00:07)
[2017-11-25 01:06] LABS: TROP-I INTERPRETATION NEGATIVE; TROPONIN-I < 0.01 ng/mL (0.0-0.30)
[2017-11-25] MEDS ORDERED: IBUPROFEN800 MG PO (01:20)
[2017-11-25 04:37] LABS: ALBUMIN 3.7 g/dL (3.2-4.8)
[2017-11-25 04:40] LABS: TOTAL PROTEIN 7.4 g/dL (6.4-8.3)
[2017-11-25 04:42] LABS: TOTAL BILIRUBIN 0.5 mg/dL (0.0-1.0)
[2017-11-25 04:43] LABS: ALKALINE PHOSPHATASE 90 IU/L (3-129)
[2017-11-25 04:45] LABS: AST (GOT) 18 IU/L (2-34); DIRECT BILIRUBIN 0.2 mg/dL (0.0-0.3)
[2017-11-25 04:46] LABS: ALT (GPT) 27 IU/L (3-49)
[2017-11-25 06:53] LABS: TROP-I INTERPRETATION NEGATIVE; TROPONIN-I < 0.01 ng/mL (0.0-0.30)
[2017-11-25 08:00] VITALS: BP 165/82
[2017-11-25] MEDS ORDERED: ASPIR-LOW81 MG PO (11:54)
[2017-11-25] MEDS ORDERED: PANTOPRAZOLE SO40 MG PO (11:54)
[2017-11-25 12:21] VITALS: BP 151/79
[2017-11-25 12:58] LABS: TROP-I INTERPRETATION NEGATIVE; TROPONIN-I < 0.01 ng/mL (0.0-0.30)
[2017-11-25 15:55] VITALS: BP 141/78
[2017-11-25 20:51] VITALS: BP 137/63
[2017-11-26 01:23] VITALS: BP 164/92
[2017-11-26 04:33] VITALS: BP 140/64
[2017-11-26 06:08] LABS: HEMATOCRIT 37.6 % (38.0-50.0); HEMOGLOBIN 11.9 G/DL (12.5-16.6); MCH 25.3 PG (29.0-34.0); MCHC 31.6 G/DL (30.0-36.0); PLATELET COUNT 193 K/uL (156-360); RBC DIS.WIDTH-CV 15.3 % (11.8-14.6); RBC DIS.WIDTH-SD 44.2 % (39-53); WHITE BLOOD COUNT 6.4 K/uL (4.1-10.2)
[2017-11-26 06:28] LABS: CHLORIDE 103 MEQ/L (99-109); CREATININE 0.9 MG/DL (0.6-1.3); GFR ESTIMATE (CALCULATED) > 59 mL/min/ (58.99-99999); GLUCOSE 114 mg/dL (70-99); POTASSIUM 4.1 MEQ/L (3.7-5.4); SODIUM 140 MEQ/L (136-147); UREA NITROGEN (BUN) 12 mg/dL (9-23)
[2017-11-26 08:44] VITALS: BP 178/88
== END 2017-11-26 09:22 | disposition home or self-care (01) ==
LOC: EME 21:11 → EDOF 11-25 03:28 → ENRESERV 11-25 03:29 → 5WEST 11-25 07:53
PROVIDERS: Hospitalist; Nurse Practitioner Family
DX: R07.9 Chest pain, unspecified (principal); K21.9 Gastro-esophageal reflux disease without esophagitis; I10 Essential (primary) hypertension; E66.01 Morbid (severe) obesity due to excess calories; Z68.44 Body mass index [BMI] 60.0-69.9, adult; G47.30 Sleep apnea, unspecified; E11.43 Type 2 diabetes mellitus with diabetic autonomic (poly)neuropathy; G89.29 Other chronic pain; D86.9 Sarcoidosis, unspecified; Z82.49 Family history of ischemic heart disease and other diseases of the circulatory system; Z79.82 Long term (current) use of aspirin; Z88.0 Allergy status to penicillin; Z88.8 Allergy status to other drugs, medicaments and biological substances
CPT/HCPCS: 71046; 80048; 80076; 84484; 85027; 85379; 93005; 99202; 99281; 99285; G0378; J1650

== ENCOUNTER 2017-12-05 22:39 | Emergency (ER) | payer OTHER ==
[~2017-12-05] VITALS: Ht 180.3 cm; Wt 224.8 kg
[~2017-12-05 22:39] MED LIST changes: +ASPIR 8181 M1 PO; +ASPIR-LOW81 MG PO; +ERGOCALCIF50000 UNIT PO; +OMEPRAZOLE40 M1 PO
[2017-12-05 23:05] LABS: HEMATOCRIT 35.9 % (38.0-50.0); HEMOGLOBIN 11.9 G/DL (12.5-16.6); MCH 26.3 PG (29.0-34.0); MCHC 33.1 G/DL (30.0-36.0); MCV 79.4 FL (86-99); PLATELET COUNT 199 K/uL (156-360); RBC DIS.WIDTH-CV 15.5 % (11.8-14.6); RBC DIS.WIDTH-SD 44.1 % (39-53); RED BLOOD COUNT 4.52 M/uL (4.00-5.50); WHITE BLOOD COUNT 9.3 K/uL (4.1-10.2)
[2017-12-05 23:16] LABS: CHLORIDE 107 mEq/L (99-109); POTASSIUM 3.8 mEq/L (3.7-5.4); SODIUM 138 mEq/L (136-147)
[2017-12-05 23:18] LABS: GLUCOSE 89 mg/dL (70-99); TOTAL PROTEIN 7.3 g/dL (6.4-8.3)
[2017-12-05 23:20] LABS: TOTAL BILIRUBIN 0.6 mg/dL (0.0-1.0)
[2017-12-05 23:22] LABS: ALKALINE PHOSPHATASE 81 IU/L (3-129); GFR ESTIMATE (CALCULATED) > 59 mL/min/ (58.99-99999)
[2017-12-05 23:23] LABS: AST (GOT) 18 IU/L (2-34); UREA NITROGEN (BUN) 13 mg/dL (9-23)
[2017-12-05 23:25] LABS: ALT (GPT) 25 IU/L (3-49); LIPASE 22 U/L (1.0-51.0)
[2017-12-05 23:28] LABS: TROP-I INTERPRETATION NEGATIVE; TROPONIN-I < 0.01 ng/mL (0.0-0.30)
[2017-12-06 02:40] VITALS: BP 180/77
== END 2017-12-06 02:40 | disposition home or self-care (01) ==
LOC: EME 22:39
DX: R10.12 Left upper quadrant pain (principal); R11.0 Nausea; I10 Essential (primary) hypertension; E66.01 Morbid (severe) obesity due to excess calories; Z68.44 Body mass index [BMI] 60.0-69.9, adult
CPT/HCPCS: 80053; 81003; 83690; 84484; 85027; 93005; 99281; 99284

== ENCOUNTER 2017-12-11 07:00 | Emergency (ER) | payer OTHER ==
[~2017-12-11] VITALS: Ht 180.3 cm; Wt 123.3 kg
[2017-12-11 07:43] LABS: HEMATOCRIT 38.6 % (38.0-50.0); HEMOGLOBIN 12.6 G/DL (12.5-16.6); MCH 26.1 PG (29.0-34.0); MCHC 32.6 G/DL (30.0-36.0); MCV 80.1 FL (86-99); PLATELET COUNT 189 K/uL (156-360); RBC DIS.WIDTH-CV 15.4 % (11.8-14.6); RBC DIS.WIDTH-SD 44.5 % (39-53); RED BLOOD COUNT 4.82 M/uL (4.00-5.50); WHITE BLOOD COUNT 8.4 K/uL (4.1-10.2)
[2017-12-11 08:17] LABS: TROP-I INTERPRETATION NEGATIVE; TROPONIN-I < 0.01 ng/mL (0.0-0.30)
[2017-12-11 08:23] LABS: CHLORIDE 104 MEQ/L (99-109); POTASSIUM 4.2 MEQ/L (3.7-5.4); SODIUM 138 MEQ/L (136-147)
[2017-12-11 08:29] LABS: CREATININE 0.9 MG/DL (0.6-1.3); GFR ESTIMATE (CALCULATED) > 59 mL/min/ (58.99-99999); GLUCOSE 110 mg/dL (70-99); UREA NITROGEN (BUN) 10 mg/dL (9-23)
[2017-12-11 10:43] LABS: TROP-I INTERPRETATION NEGATIVE; TROPONIN-I < 0.01 ng/mL (0.0-0.30)
[2017-12-11 11:40] VITALS: BP 160/92
== END 2017-12-11 11:44 | disposition home or self-care (01) ==
LOC: EME 07:00
PROVIDERS: Emergency Medicine
DX: R07.89 Other chest pain (principal); I10 Essential (primary) hypertension; E66.01 Morbid (severe) obesity due to excess calories; Z79.82 Long term (current) use of aspirin
CPT/HCPCS: 71045; 80048; 84484; 85027; 93005; 99281; 99284

== ENCOUNTER 2017-12-19 13:52 | Emergency (ER) | payer OTHER ==
[~2017-12-19] VITALS: Ht 180.3 cm; Wt 224.2 kg
[2017-12-19 14:47] LABS: HEMOGLOBIN 12.6 G/DL (12.5-16.6); MCH 26.3 PG (29.0-34.0); MCHC 33.2 G/DL (30.0-36.0); MCV 79.3 FL (86-99); PLATELET COUNT 206 K/uL (156-360); RBC DIS.WIDTH-CV 15.5 % (11.8-14.6); RBC DIS.WIDTH-SD 44.4 % (39-53); RED BLOOD COUNT 4.79 M/uL (4.00-5.50); WHITE BLOOD COUNT 7.9 K/uL (4.1-10.2)
[2017-12-19 14:56] LABS: CHLORIDE 103 mEq/L (99-109); SODIUM 139 mEq/L (136-147)
[2017-12-19 14:58] LABS: GLUCOSE 92 mg/dL (70-99)
[2017-12-19 15:02] LABS: CREATININE 0.8 mg/dL (0.6-1.3); GFR ESTIMATE (CALCULATED) > 59 mL/min/ (58.99-99999); UREA NITROGEN (BUN) 11 mg/dL (9-23)
[2017-12-19 15:22] LABS: TROP-I INTERPRETATION NEGATIVE; TROPONIN-I < 0.01 ng/mL (0.0-0.30)
[2017-12-19 17:14] LABS: MAGNESIUM 2.1 mg/dL (1.3-2.7)
[2017-12-19 18:22] LABS: TROP-I INTERPRETATION NEGATIVE; TROPONIN-I < 0.01 ng/mL (0.0-0.30)
[2017-12-19] MEDS ORDERED: MOTRIN600 MG PO (19:12)
[2017-12-19] MEDS ORDERED: ULTRACET1 TABLET PO (19:12)
[2017-12-19 19:33] VITALS: BP 187/84
== END 2017-12-19 20:22 | disposition home or self-care (01) ==
LOC: EME 13:52
PROVIDERS: Physician Assistant
DX: R07.89 Other chest pain (principal); I10 Essential (primary) hypertension; E66.01 Morbid (severe) obesity due to excess calories; Z68.44 Body mass index [BMI] 60.0-69.9, adult; K21.9 Gastro-esophageal reflux disease without esophagitis; D86.9 Sarcoidosis, unspecified; J45.909 Unspecified asthma, uncomplicated; G47.30 Sleep apnea, unspecified; F32.9 Major depressive disorder, single episode, unspecified; F41.9 Anxiety disorder, unspecified; Z88.0 Allergy status to penicillin; Z88.1 Allergy status to other antibiotic agents; Z88.8 Allergy status to other drugs, medicaments and biological substances
CPT/HCPCS: 71046; 80048; 83735; 84484; 85027; 85379; 93005; 99281; 99284

== ENCOUNTER 2017-12-31 16:00 | Emergency (ER) | payer OTHER ==
[~2017-12-31] VITALS: Ht 180.3 cm; Wt 225.0 kg
[~2017-12-31 16:00] MED LIST changes: +ULTRACET1 TABLET PO
[2017-12-31 16:46] LABS: HEMATOCRIT 36.6 % (38.0-50.0); HEMOGLOBIN 12.1 G/DL (12.5-16.6); MCHC 33.1 G/DL (30.0-36.0); MCV 78.7 FL (86-99); PLATELET COUNT 193 K/uL (156-360); RBC DIS.WIDTH-CV 15.1 % (11.8-14.6); RBC DIS.WIDTH-SD 42.9 % (39-53); RED BLOOD COUNT 4.65 M/uL (4.00-5.50); WHITE BLOOD COUNT 8.8 K/uL (4.1-10.2)
[2017-12-31 16:55] LABS: ALBUMIN 3.7 g/dL (3.2-4.8); CHLORIDE 105 mEq/L (99-109); POTASSIUM 3.9 mEq/L (3.7-5.4); SODIUM 140 mEq/L (136-147)
[2017-12-31 16:57] LABS: GLUCOSE 97 mg/dL (70-99); TOTAL PROTEIN 6.9 g/dL (6.4-8.3)
[2017-12-31 16:59] LABS: TOTAL BILIRUBIN 0.6 mg/dL (0.0-1.0)
[2017-12-31 17:01] LABS: APPEARANCE SL.HAZY ((CLEAR)); BILIRUBIN NEGATIVE; BLOOD NEGATIVE; COLOR YELLOW ((YELLOW)); GLUCOSE (STRIP) NEGATIVE; KETONES NEGATIVE; LEUKOCYTES NEGATIVE; NITRITE NEGATIVE; PROTEIN (STRIP) NEGATIVE; SPECIFIC GRAVITY 1.023 (1.000-1.030)
[2017-12-31 17:01] LABS: ALKALINE PHOSPHATASE 91 IU/L (3-129); CREATININE 0.8 mg/dL (0.6-1.3); GFR ESTIMATE (CALCULATED) > 59 mL/min/ (58.99-99999)
[2017-12-31 17:02] LABS: UREA NITROGEN (BUN) 13 mg/dL (9-23)
[2017-12-31 17:03] LABS: AST (GOT) 16 IU/L (2-34)
[2017-12-31 17:04] LABS: ALT (GPT) 20 IU/L (3-49)
[2017-12-31 17:06] LABS: BACTERIA RARE /HPF; EPITHELIAL CELLS RARE /HPF; MUCUS TRACE /LPF; RED BLOOD CELLS 0-5 /HPF (0-5); UCUL ADDED? NO; WHITE BLOOD CELLS 0-5 /HPF (0-5)
[2017-12-31] MEDS ORDERED: HYDROCHLOROTHIA25 MG PO (17:31)
[2017-12-31 17:54] VITALS: BP 157/84
== END 2017-12-31 18:05 | disposition home or self-care (01) ==
LOC: EME 16:00
DX: R10.9 Unspecified abdominal pain (principal); I10 Essential (primary) hypertension; K21.9 Gastro-esophageal reflux disease without esophagitis; J45.909 Unspecified asthma, uncomplicated; G47.30 Sleep apnea, unspecified; E66.01 Morbid (severe) obesity due to excess calories; F41.9 Anxiety disorder, unspecified; F32.9 Major depressive disorder, single episode, unspecified; Z87.09 Personal history of other diseases of the respiratory system; Z87.19 Personal history of other diseases of the digestive system; Z88.0 Allergy status to penicillin; Z88.8 Allergy status to other drugs, medicaments and biological substances
CPT/HCPCS: 71045; 80053; 81003; 85027; 99281; 99284

== ENCOUNTER 2018-01-07 19:41 | Emergency (ER) | payer OTHER ==
[~2018-01-07] VITALS: Ht 180.3 cm; Wt 225.6 kg
[2018-01-07 20:46] LABS: HEMOGLOBIN 12.4 G/DL (12.5-16.6); MCH 25.6 PG (29.0-34.0); MCHC 32.6 G/DL (30.0-36.0); MCV 78.5 FL (86-99); PLATELET COUNT 212 K/uL (156-360); RBC DIS.WIDTH-CV 15.4 % (11.8-14.6); RBC DIS.WIDTH-SD 43.5 % (39-53); RED BLOOD COUNT 4.84 M/uL (4.00-5.50); WHITE BLOOD COUNT 9.4 K/uL (4.1-10.2)
[2018-01-07 21:07] LABS: CHLORIDE 99 MEQ/L (99-109); POTASSIUM 3.6 MEQ/L (3.7-5.4); SODIUM 133 MEQ/L (136-147)
[2018-01-07 21:09] LABS: TROP-I INTERPRETATION NEGATIVE; TROPONIN-I < 0.01 ng/mL (0.0-0.30)
[2018-01-07 21:13] LABS: GFR ESTIMATE (CALCULATED) > 59 mL/min/ (58.99-99999); GLUCOSE 130 mg/dL (70-99); UREA NITROGEN (BUN) 17 mg/dL (9-23)
[2018-01-07 23:33] VITALS: BP 154/82
== END 2018-01-07 23:33 | disposition home or self-care (01) ==
LOC: EME 19:41
DX: R07.9 Chest pain, unspecified (principal); K21.9 Gastro-esophageal reflux disease without esophagitis; I10 Essential (primary) hypertension; J45.909 Unspecified asthma, uncomplicated; E66.01 Morbid (severe) obesity due to excess calories; G47.30 Sleep apnea, unspecified; E55.9 Vitamin D deficiency, unspecified; F41.9 Anxiety disorder, unspecified; F32.9 Major depressive disorder, single episode, unspecified; Z88.0 Allergy status to penicillin; Z88.8 Allergy status to other drugs, medicaments and biological substances
CPT/HCPCS: 71046; 80048; 84484; 85027; 93005

== ENCOUNTER 2018-01-30 21:40 | Emergency (ER) | payer OTHER ==
[~2018-01-30] VITALS: Ht 180.3 cm; Wt 225.5 kg
[2018-01-30 22:24] LABS: BASOPHIL (%) 0.4 % (0-1); EOSINOPHIL (%) 1.5 % (0-5); EOSINOPHIL COUNT 0.1 K/uL (0-0.3); HEMOGLOBIN 12.4 G/DL (12.5-16.6); IMMATURE GRANULOCYTE (%) 0.3 % (0.0-0.7); LYMPHOCYTE (%) 34.9 % (15-42); LYMPHOCYTE COUNT 3.3 K/uL (1.0-2.8); MCH 25.7 PG (29.0-34.0); MCHC 32.6 G/DL (30.0-36.0); MCV 78.8 FL (86-99); MONOCYTE (%) 8.4 % (3-12); MONOCYTE COUNT 0.8 K/uL (0-0.8); NEUTROPHIL (%) 54.5 % (45-76); NEUTROPHIL COUNT 5.2 K/uL (1.8-6.4); PLATELET COUNT 214 K/uL (156-360); RBC DIS.WIDTH-CV 15.6 % (11.8-14.6); RBC DIS.WIDTH-SD 44.3 % (39-53); RED BLOOD COUNT 4.82 M/uL (4.00-5.50); WHITE BLOOD COUNT 9.4 K/uL (4.1-10.2)
[2018-01-30 22:36] LABS: ALBUMIN 3.8 g/dL (3.2-4.8); CHLORIDE 104 mEq/L (99-109); POTASSIUM 3.9 mEq/L (3.7-5.4); SODIUM 138 mEq/L (136-147)
[2018-01-30 22:38] LABS: GLUCOSE 119 mg/dL (70-99); TOTAL PROTEIN 7.3 g/dL (6.4-8.3)
[2018-01-30 22:40] LABS: TOTAL BILIRUBIN 0.7 mg/dL (0.0-1.0)
[2018-01-30 22:42] LABS: ALKALINE PHOSPHATASE 95 IU/L (3-129); CREATININE 1.3 mg/dL (0.6-1.3); GFR ESTIMATE (CALCULATED) > 59 mL/min/ (58.99-99999)
[2018-01-30 22:43] LABS: UREA NITROGEN (BUN) 13 mg/dL (9-23)
[2018-01-30 22:44] LABS: AST (GOT) 19 IU/L (2-34); DIRECT BILIRUBIN 0.3 mg/dL (0.0-0.3)
[2018-01-30 22:45] LABS: ALT (GPT) 23 IU/L (3-49); LIPASE 27 U/L (1.0-51.0)
[2018-01-31 00:02] LABS: APPEARANCE SL.HAZY ((CLEAR)); BILIRUBIN NEGATIVE; BLOOD NEGATIVE; COLOR YELLOW ((YELLOW)); GLUCOSE (STRIP) NEGATIVE; KETONES NEGATIVE; LEUKOCYTES TRACE; NITRITE NEGATIVE; PROTEIN (STRIP) 30; SPECIFIC GRAVITY 1.024 (1.000-1.030)
[2018-01-31 00:06] LABS: BACTERIA NONE SEEN /HPF; EPITHELIAL CELLS RARE /HPF; MUCUS NONE SEEN /LPF; RED BLOOD CELLS 0-5 /HPF (0-5)
[2018-01-31] MEDS ORDERED: ZOFRAN ODT8 MG PO (00:14)
[2018-01-31 00:40] VITALS: BP 201/83
== END 2018-01-31 00:41 | disposition home or self-care (01) ==
LOC: EME 21:40
PROVIDERS: Physician Assistant
DX: R10.11 Right upper quadrant pain (principal); S86.911A Strain of unspecified muscle(s) and tendon(s) at lower leg level, right leg, initial encounter; E66.01 Morbid (severe) obesity due to excess calories; Z68.44 Body mass index [BMI] 60.0-69.9, adult; R60.0 Localized edema; K76.0 Fatty (change of) liver, not elsewhere classified; R80.9 Proteinuria, unspecified; R11.0 Nausea; R16.0 Hepatomegaly, not elsewhere classified; D86.9 Sarcoidosis, unspecified; J45.909 Unspecified asthma, uncomplicated; F32.9 Major depressive disorder, single episode, unspecified; I10 Essential (primary) hypertension; K21.9 Gastro-esophageal reflux disease without esophagitis; F41.9 Anxiety disorder, unspecified; G47.30 Sleep apnea, unspecified; E55.9 Vitamin D deficiency, unspecified; Z88.0 Allergy status to penicillin; Z88.8 Allergy status to other drugs, medicaments and biological substances
CPT/HCPCS: 76705; 80048; 80076; 81003; 83690; 85025; 87086; 93971; 99281; 99284; J1885

== ENCOUNTER 2018-02-10 20:06 | Emergency (ER) | payer OTHER ==
[~2018-02-10] VITALS: Ht 180.3 cm; Wt 223.4 kg
[~2018-02-10 20:06] MED LIST changes: +ZOFRAN ODT8 MG PO
[2018-02-10 20:49] LABS: HEMATOCRIT 37.4 % (38.0-50.0); HEMOGLOBIN 12.5 G/DL (12.5-16.6); MCH 26.2 PG (29.0-34.0); MCHC 33.4 G/DL (30.0-36.0); MCV 78.2 FL (86-99); PLATELET COUNT 217 K/uL (156-360); RBC DIS.WIDTH-CV 15.7 % (11.8-14.6); RBC DIS.WIDTH-SD 44.1 % (39-53); RED BLOOD COUNT 4.78 M/uL (4.00-5.50); WHITE BLOOD COUNT 9.2 K/uL (4.1-10.2)
[2018-02-10 21:03] LABS: CHLORIDE 102 mEq/L (99-109); POTASSIUM 3.9 mEq/L (3.7-5.4); SODIUM 139 mEq/L (136-147)
[2018-02-10 21:05] LABS: GLUCOSE 100 mg/dL (70-99)
[2018-02-10 21:09] LABS: CREATININE 1.1 mg/dL (0.6-1.3); GFR ESTIMATE (CALCULATED) > 59 mL/min/ (58.99-99999); UREA NITROGEN (BUN) 14 mg/dL (9-23)
[2018-02-10 21:16] LABS: TROP-I INTERPRETATION NEGATIVE; TROPONIN-I < 0.01 ng/mL (0.0-0.30)
[2018-02-11 00:09] LABS: TROP-I INTERPRETATION NEGATIVE; TROPONIN-I < 0.01 ng/mL (0.0-0.30)
[2018-02-11 00:35] VITALS: BP 129/70
[2018-02-11] MEDS ORDERED: NYSTATIN-TRIAMC15 GM TP (23:39)
[2018-02-11] MEDS ORDERED: LEVAQUIN500 MG PO (23:39)
== END 2018-02-11 00:36 | disposition home or self-care (01) ==
LOC: EME 20:06
PROVIDERS: Physician Assistant
DX: R07.89 Other chest pain (principal); D86.9 Sarcoidosis, unspecified; E78.5 Hyperlipidemia, unspecified; I10 Essential (primary) hypertension; J44.9 Chronic obstructive pulmonary disease, unspecified; E66.9 Obesity, unspecified; Z68.44 Body mass index [BMI] 60.0-69.9, adult; K21.9 Gastro-esophageal reflux disease without esophagitis; F32.9 Major depressive disorder, single episode, unspecified; Z88.0 Allergy status to penicillin; Z88.8 Allergy status to other drugs, medicaments and biological substances; F41.9 Anxiety disorder, unspecified
CPT/HCPCS: 71046; 80048; 84484; 85027; 85379; 93005; 99281; 99285

== ENCOUNTER 2018-02-11 17:18 | Emergency (ER) | payer OTHER ==
[~2018-02-11] VITALS: Ht 180.3 cm; Wt 224.1 kg
[2018-02-11 17:52] LABS: HEMATOCRIT 38.8 % (38.0-50.0); HEMOGLOBIN 12.8 G/DL (12.5-16.6); MCH 26.2 PG (29.0-34.0); MCV 79.5 FL (86-99); PLATELET COUNT 225 K/uL (156-360); RBC DIS.WIDTH-CV 15.7 % (11.8-14.6); RBC DIS.WIDTH-SD 44.3 % (39-53); RED BLOOD COUNT 4.88 M/uL (4.00-5.50); WHITE BLOOD COUNT 12.3 K/uL (4.1-10.2)
[2018-02-11 17:59] LABS: CHLORIDE 102 mEq/L (99-109); POTASSIUM 4.1 mEq/L (3.7-5.4); SODIUM 139 mEq/L (136-147)
[2018-02-11 18:02] LABS: GLUCOSE 78 mg/dL (70-99); TOTAL PROTEIN 7.7 g/dL (6.4-8.3)
[2018-02-11 18:04] LABS: TOTAL BILIRUBIN 0.6 mg/dL (0.0-1.0)
[2018-02-11 18:05] LABS: ALKALINE PHOSPHATASE 98 IU/L (3-129); GFR ESTIMATE (CALCULATED) > 59 mL/min/ (58.99-99999)
[2018-02-11 18:06] LABS: UREA NITROGEN (BUN) 13 mg/dL (9-23)
[2018-02-11 18:07] LABS: APPEARANCE CLEAR ((CLEAR)); BILIRUBIN NEGATIVE; BLOOD NEGATIVE; COLOR YELLOW ((YELLOW)); GLUCOSE (STRIP) NEGATIVE; KETONES NEGATIVE; LEUKOCYTES TRACE; NITRITE NEGATIVE; PROTEIN (STRIP) NEGATIVE; SPECIFIC GRAVITY 1.012 (1.000-1.030); UROBILINOGEN 0.2 MG/DL (0.2-1.0)
[2018-02-11 18:07] LABS: AST (GOT) 21 IU/L (2-34)
[2018-02-11 18:08] LABS: ALT (GPT) 28 IU/L (3-49)
[2018-02-11 18:15] LABS: BACTERIA RARE /HPF; EPITHELIAL CELLS RARE /HPF; MUCUS TRACE /LPF; RED BLOOD CELLS 0-5 /HPF (0-5); UCUL ADDED? NO; WHITE BLOOD CELLS 0-5 /HPF (0-5)
[2018-02-11] MEDS ORDERED: NYSTATIN-TRIAMC15 GM TP (23:39)
[2018-02-11] MEDS ORDERED: LEVAQUIN500 MG PO (23:39)
[2018-02-11 23:53] VITALS: BP 204/97
== END 2018-02-11 23:55 | disposition home or self-care (01) ==
LOC: EME 17:18
DX: R10.32 Left lower quadrant pain (principal); N45.1 Epididymitis; K21.9 Gastro-esophageal reflux disease without esophagitis; J45.909 Unspecified asthma, uncomplicated; I10 Essential (primary) hypertension; F41.9 Anxiety disorder, unspecified; F32.9 Major depressive disorder, single episode, unspecified; D86.9 Sarcoidosis, unspecified; E66.01 Morbid (severe) obesity due to excess calories; Z88.0 Allergy status to penicillin; B37.2 Candidiasis of skin and nail
CPT/HCPCS: 76770; 76870; 80053; 81003; 85027; 99281; 99284

== ENCOUNTER 2018-02-20 22:12 | Emergency (ER) | payer OTHER ==
[~2018-02-20] VITALS: Ht 180.3 cm; Wt 225.1 kg
[~2018-02-20 22:12] MED LIST changes: +NYSTATIN-TRIAMC15 GM TP
[2018-02-20 22:42] LABS: HEMATOCRIT 37.7 % (38.0-50.0); HEMOGLOBIN 12.3 G/DL (12.5-16.6); MCH 25.6 PG (29.0-34.0); MCHC 32.6 G/DL (30.0-36.0); MCV 78.5 FL (86-99); PLATELET COUNT 190 K/uL (156-360); RBC DIS.WIDTH-CV 15.6 % (11.8-14.6); RBC DIS.WIDTH-SD 44.7 % (39-53); WHITE BLOOD COUNT 10.1 K/uL (4.1-10.2)
[2018-02-20 22:52] LABS: CHLORIDE 105 mEq/L (99-109); POTASSIUM 3.8 mEq/L (3.7-5.4); SODIUM 140 mEq/L (136-147)
[2018-02-20 22:54] LABS: GLUCOSE 103 mg/dL (70-99)
[2018-02-20 22:58] LABS: GFR ESTIMATE (CALCULATED) > 59 mL/min/ (58.99-99999)
[2018-02-20 22:59] LABS: UREA NITROGEN (BUN) 14 mg/dL (9-23)
[2018-02-20 23:03] LABS: TROP-I INTERPRETATION NEGATIVE; TROPONIN-I < 0.01 ng/mL (0.0-0.30)
[2018-02-21 01:35] LABS: TROP-I INTERPRETATION NEGATIVE; TROPONIN-I < 0.01 ng/mL (0.0-0.30)
[2018-02-21 02:07] VITALS: BP 136/78
== END 2018-02-21 02:07 | disposition home or self-care (01) ==
LOC: EME 22:12
PROVIDERS: Emergency Medicine
DX: R07.89 Other chest pain (principal); I44.0 Atrioventricular block, first degree; I45.4 Nonspecific intraventricular block; R94.31 Abnormal electrocardiogram [ECG] [EKG]; I10 Essential (primary) hypertension; J45.909 Unspecified asthma, uncomplicated; K21.9 Gastro-esophageal reflux disease without esophagitis; E87.6 Hypokalemia; G47.30 Sleep apnea, unspecified; D86.9 Sarcoidosis, unspecified; F41.9 Anxiety disorder, unspecified; F32.9 Major depressive disorder, single episode, unspecified; E66.01 Morbid (severe) obesity due to excess calories; Z68.44 Body mass index [BMI] 60.0-69.9, adult; Z88.0 Allergy status to penicillin; Z88.8 Allergy status to other drugs, medicaments and biological substances
CPT/HCPCS: 71046; 80048; 84484; 85027; 93005; 99281; 99284

== ENCOUNTER → 2018-03-03 | Outpatient (CLI) | payer OTHER | END | disposition home or self-care (01) | LOC: NUC 06:42 | DX: R10.11 Right upper quadrant pain (principal) | CPT/HCPCS: 78227; A9537; J2805 ==

== ENCOUNTER 2018-03-15 20:37 | Emergency (ER) | payer OTHER ==
[~2018-03-15] VITALS: Ht 180.3 cm; Wt 226.9 kg
[2018-03-15 21:43] LABS: HEMATOCRIT 37.2 % (38.0-50.0); HEMOGLOBIN 12.1 G/DL (12.5-16.6); MCH 25.7 PG (29.0-34.0); MCHC 32.5 G/DL (30.0-36.0); PLATELET COUNT 198 K/uL (156-360); RBC DIS.WIDTH-CV 15.7 % (11.8-14.6); RBC DIS.WIDTH-SD 44.7 % (39-53); RED BLOOD COUNT 4.71 M/uL (4.00-5.50); WHITE BLOOD COUNT 9.2 K/uL (4.1-10.2)
[2018-03-15 22:06] LABS: CHLORIDE 104 mEq/L (99-109); POTASSIUM 3.7 mEq/L (3.7-5.4); SODIUM 138 mEq/L (136-147)
[2018-03-15 22:08] LABS: GLUCOSE 155 mg/dL (70-99)
[2018-03-15 22:12] LABS: CREATININE 0.9 mg/dL (0.6-1.3); GFR ESTIMATE (CALCULATED) > 59 mL/min/ (58.99-99999)
[2018-03-15 22:13] LABS: TROP-I INTERPRETATION NEGATIVE; TROPONIN-I 0.01 ng/mL (0.0-0.30); UREA NITROGEN (BUN) 13 mg/dL (9-23)
[2018-03-16 00:11] LABS: TROP-I INTERPRETATION NEGATIVE; TROPONIN-I < 0.01 ng/mL (0.0-0.30)
[2018-03-16 01:20] VITALS: BP 150/84
== END 2018-03-16 01:21 | disposition home or self-care (01) ==
LOC: EME 20:37
PROVIDERS: Emergency Medicine
DX: R07.9 Chest pain, unspecified (principal); D86.9 Sarcoidosis, unspecified; J45.909 Unspecified asthma, uncomplicated; G47.30 Sleep apnea, unspecified; K21.9 Gastro-esophageal reflux disease without esophagitis; I10 Essential (primary) hypertension; E66.01 Morbid (severe) obesity due to excess calories; Z68.44 Body mass index [BMI] 60.0-69.9, adult; E78.5 Hyperlipidemia, unspecified; K31.84 Gastroparesis; F41.9 Anxiety disorder, unspecified; F32.9 Major depressive disorder, single episode, unspecified; Z88.0 Allergy status to penicillin; Z88.8 Allergy status to other drugs, medicaments and biological substances
CPT/HCPCS: 71046; 80048; 84484; 85027; 93005; 99281; 99285

== ENCOUNTER 2018-03-23 20:27 | Emergency (ER) | payer OTHER ==
[~2018-03-23] VITALS: Ht 180.3 cm; Wt 225.6 kg
[2018-03-23 21:18] LABS: HEMATOCRIT 37.4 % (38.0-50.0); HEMOGLOBIN 12.4 G/DL (12.5-16.6); MCH 26.2 PG (29.0-34.0); MCHC 33.2 G/DL (30.0-36.0); MCV 79.1 FL (86-99); PLATELET COUNT 212 K/uL (156-360); RBC DIS.WIDTH-CV 15.8 % (11.8-14.6); RBC DIS.WIDTH-SD 44.4 % (39-53); RED BLOOD COUNT 4.73 M/uL (4.00-5.50)
[2018-03-23 21:44] LABS: TROP-I INTERPRETATION NEGATIVE; TROPONIN-I < 0.01 ng/mL (0.0-0.30)
[2018-03-23 22:34] LABS: CHLORIDE 103 MEQ/L (99-109); POTASSIUM 3.8 MEQ/L (3.7-5.4); SODIUM 138 MEQ/L (136-147)
[2018-03-23 22:40] LABS: GFR ESTIMATE (CALCULATED) > 59 mL/min/ (58.99-99999); GLUCOSE 149 mg/dL (70-99); UREA NITROGEN (BUN) 11 mg/dL (9-23)
[2018-03-24] MEDS ORDERED: MEDROL DOSEPAK4 MG PO (00:07)
[2018-03-24 00:21] VITALS: BP 180/71
== END 2018-03-24 00:23 | disposition home or self-care (01) ==
LOC: EME 20:27
DX: J45.909 Unspecified asthma, uncomplicated (principal); R06.02 Shortness of breath; I10 Essential (primary) hypertension; K21.9 Gastro-esophageal reflux disease without esophagitis; E66.01 Morbid (severe) obesity due to excess calories; D86.9 Sarcoidosis, unspecified; E55.9 Vitamin D deficiency, unspecified; R53.1 Weakness; H92.09 Otalgia, unspecified ear; Z88.0 Allergy status to penicillin; Z88.8 Allergy status to other drugs, medicaments and biological substances
CPT/HCPCS: 71046; 80048; 83880; 84484; 85027; 85379; 93005; 94640; 99281; 99285

== ENCOUNTER 2018-03-27 19:56 | Emergency (ER) | payer OTHER ==
[~2018-03-27] VITALS: Ht 180.3 cm; Wt 224.1 kg
[~2018-03-27 19:56] MED LIST changes: +MEDROL DOSEPAK4 MG PO
[2018-03-27 21:07] LABS: BASOPHIL (%) 0.3 % (0-1); EOSINOPHIL (%) 0.2 % (0-5); HEMOGLOBIN 12.3 G/DL (12.5-16.6); IMMATURE GRANULOCYTE (%) 0.5 % (0.0-0.7); LYMPHOCYTE COUNT 2.5 K/uL (1.0-2.8); MCH 25.4 PG (29.0-34.0); MCHC 32.4 G/DL (30.0-36.0); MCV 78.5 FL (86-99); MONOCYTE (%) 6.3 % (3-12); MONOCYTE COUNT 0.7 K/uL (0-0.8); NEUTROPHIL (%) 70.7 % (45-76); NEUTROPHIL COUNT 8.1 K/uL (1.8-6.4); PLATELET COUNT 221 K/uL (156-360); RBC DIS.WIDTH-CV 15.9 % (11.8-14.6); RBC DIS.WIDTH-SD 45.3 % (39-53); RED BLOOD COUNT 4.84 M/uL (4.00-5.50); WHITE BLOOD COUNT 11.4 K/uL (4.1-10.2)
[2018-03-27 21:25] LABS: CHLORIDE 104 mEq/L (99-109); POTASSIUM 4.3 mEq/L (3.7-5.4); SODIUM 139 mEq/L (136-147)
[2018-03-27 21:27] LABS: GLUCOSE 124 mg/dL (70-99); TOTAL PROTEIN 7.4 g/dL (6.4-8.3)
[2018-03-27 21:29] LABS: TOTAL BILIRUBIN 0.6 mg/dL (0.0-1.0)
[2018-03-27 21:30] LABS: ALKALINE PHOSPHATASE 87 IU/L (3-129); TROP-I INTERPRETATION NEGATIVE; TROPONIN-I < 0.01 ng/mL (0.0-0.30)
[2018-03-27 21:31] LABS: GFR ESTIMATE (CALCULATED) > 59 mL/min/ (58.99-99999)
[2018-03-27 21:32] LABS: AST (GOT) 15 IU/L (2-34); UREA NITROGEN (BUN) 18 mg/dL (9-23)
[2018-03-27 21:34] LABS: ALT (GPT) 22 IU/L (3-49)
[2018-03-27] MEDS ORDERED: FLOXIN OTIC SOLN5 ML LEFT EAR (22:15)
[2018-03-27 22:26] VITALS: BP 154/69
== END 2018-03-27 22:28 | disposition home or self-care (01) ==
LOC: EME 19:56
PROVIDERS: Emergency Medicine
DX: R20.2 Paresthesia of skin (principal); H60.92 Unspecified otitis externa, left ear; D86.9 Sarcoidosis, unspecified; J45.909 Unspecified asthma, uncomplicated; G47.30 Sleep apnea, unspecified; K21.9 Gastro-esophageal reflux disease without esophagitis; I10 Essential (primary) hypertension; K31.84 Gastroparesis; E66.01 Morbid (severe) obesity due to excess calories; Z68.44 Body mass index [BMI] 60.0-69.9, adult; F41.9 Anxiety disorder, unspecified; F32.9 Major depressive disorder, single episode, unspecified; Z88.0 Allergy status to penicillin; Z88.8 Allergy status to other drugs, medicaments and biological substances
CPT/HCPCS: 71045; 80053; 84484; 85025; 93005; 99281; 99285

== ENCOUNTER 2018-04-11 22:12 | Emergency (ER) | payer OTHER ==
[~2018-04-11] VITALS: Ht 180.3 cm; Wt 230.3 kg
[~2018-04-11 22:12] MED LIST changes: +FLOXIN OTIC SOLN5 ML LEFT EAR
[2018-04-11 23:04] LABS: HEMATOCRIT 37.4 % (38.0-50.0); HEMOGLOBIN 12.2 G/DL (12.5-16.6); MCH 25.7 PG (29.0-34.0); MCHC 32.6 G/DL (30.0-36.0); MCV 78.9 FL (86-99); PLATELET COUNT 204 K/uL (156-360); RED BLOOD COUNT 4.74 M/uL (4.00-5.50); WHITE BLOOD COUNT 8.7 K/uL (4.1-10.2)
[2018-04-11 23:16] LABS: CHLORIDE 105 mEq/L (99-109); POTASSIUM 4.1 mEq/L (3.7-5.4); SODIUM 140 mEq/L (136-147)
[2018-04-11 23:17] LABS: GLUCOSE 117 mg/dL (70-99)
[2018-04-11 23:21] LABS: CREATININE 0.9 mg/dL (0.6-1.3); GFR ESTIMATE (CALCULATED) > 59 mL/min/ (58.99-99999)
[2018-04-11 23:22] LABS: UREA NITROGEN (BUN) 10 mg/dL (9-23)
[2018-04-11 23:24] LABS: TROP-I INTERPRETATION NEGATIVE; TROPONIN-I < 0.01 ng/mL (0.0-0.30)
[2018-04-12 00:29] VITALS: BP 175/66
== END 2018-04-12 00:36 | disposition home or self-care (01) ==
LOC: EME 22:12
PROVIDERS: Emergency Medicine
DX: R05 Cough (principal); J02.9 Acute pharyngitis, unspecified; D86.9 Sarcoidosis, unspecified; J45.909 Unspecified asthma, uncomplicated; G47.30 Sleep apnea, unspecified; I10 Essential (primary) hypertension; K21.9 Gastro-esophageal reflux disease without esophagitis; K31.84 Gastroparesis; E66.01 Morbid (severe) obesity due to excess calories; Z68.45 Body mass index [BMI] 70 or greater, adult; F41.9 Anxiety disorder, unspecified; F32.9 Major depressive disorder, single episode, unspecified; Z88.0 Allergy status to penicillin; Z88.8 Allergy status to other drugs, medicaments and biological substances
CPT/HCPCS: 71046; 80048; 84484; 85027; 87502; 87651 90; 93005; 99281; 99284

== ENCOUNTER 2018-04-19 19:38 | Emergency (ER) | payer OTHER ==
[~2018-04-19] VITALS: Ht 182.9 cm; Wt 226.3 kg
[2018-04-19 20:54] LABS: HEMATOCRIT 37.8 % (38.0-50.0); HEMOGLOBIN 12.5 G/DL (12.5-16.6); MCH 25.7 PG (29.0-34.0); MCHC 33.1 G/DL (30.0-36.0); MCV 77.8 FL (86-99); PLATELET COUNT 229 K/uL (156-360); RBC DIS.WIDTH-CV 16.1 % (11.8-14.6); RBC DIS.WIDTH-SD 45.4 % (39-53); RED BLOOD COUNT 4.86 M/uL (4.00-5.50); WHITE BLOOD COUNT 10.5 K/uL (4.1-10.2)
[2018-04-19 21:00] LABS: CHLORIDE 106 mEq/L (99-109); POTASSIUM 3.7 mEq/L (3.7-5.4); SODIUM 139 mEq/L (136-147)
[2018-04-19 21:02] LABS: GLUCOSE 122 mg/dL (70-99)
[2018-04-19 21:06] LABS: CREATININE 1.2 mg/dL (0.6-1.3); GFR ESTIMATE (CALCULATED) > 59 mL/min/ (58.99-99999); UREA NITROGEN (BUN) 12 mg/dL (9-23)
[2018-04-19 21:12] LABS: TROP-I INTERPRETATION NEGATIVE; TROPONIN-I 0.01 ng/mL (0.0-0.30)
[2018-04-19] MEDS ORDERED: ROBITUSSIN AC,T10 ML PO (22:12)
[2018-04-19] MEDS ORDERED: TESSALON200 MG PO (22:12)
[2018-04-19] MEDS ORDERED: MEDROL DOSEPAK4 MG PO (22:12)
[2018-04-19 22:40] VITALS: BP 168/88
== END 2018-04-19 22:41 | disposition home or self-care (01) ==
LOC: EME 19:38
DX: J45.909 Unspecified asthma, uncomplicated (principal); R94.31 Abnormal electrocardiogram [ECG] [EKG]; I10 Essential (primary) hypertension; K21.9 Gastro-esophageal reflux disease without esophagitis; G47.30 Sleep apnea, unspecified; E66.01 Morbid (severe) obesity due to excess calories; F32.9 Major depressive disorder, single episode, unspecified; F41.9 Anxiety disorder, unspecified; Z86.39 Personal history of other endocrine, nutritional and metabolic disease; Z86.2 Personal history of diseases of the blood and blood-forming organs and certain disorders involving the immune mechanism; Z87.19 Personal history of other diseases of the digestive system; Z99.89 Dependence on other enabling machines and devices; Z88.0 Allergy status to penicillin; Z88.8 Allergy status to other drugs, medicaments and biological substances
CPT/HCPCS: 71046; 80048; 84484; 85027; 93005; 99281; 99284; J7512

== ENCOUNTER 2018-05-07 16:35 | Emergency (ER) | payer OTHER ==
[~2018-05-07] VITALS: Ht 180.3 cm; Wt 222.4 kg
[~2018-05-07 16:35] MED LIST changes: +TESSALON200 MG PO
[2018-05-07 17:04] LABS: HEMATOCRIT 38.7 % (38.0-50.0); HEMOGLOBIN 13.1 G/DL (12.5-16.6); MCH 26.3 PG (29.0-34.0); MCHC 33.9 G/DL (30.0-36.0); MCV 77.7 FL (86-99); PLATELET COUNT 212 K/uL (156-360); RBC DIS.WIDTH-SD 44.5 % (39-53); RED BLOOD COUNT 4.98 M/uL (4.00-5.50); WHITE BLOOD COUNT 11.5 K/uL (4.1-10.2)
[2018-05-07 17:13] LABS: CHLORIDE 101 mEq/L (99-109); POTASSIUM 3.8 mEq/L (3.7-5.4); SODIUM 139 mEq/L (136-147)
[2018-05-07 17:14] LABS: GLUCOSE 121 mg/dL (70-99)
[2018-05-07 17:18] LABS: GFR ESTIMATE (CALCULATED) > 59 mL/min/ (58.99-99999)
[2018-05-07 17:19] LABS: UREA NITROGEN (BUN) 12 mg/dL (9-23)
[2018-05-07 17:26] LABS: TROP-I INTERPRETATION NEGATIVE; TROPONIN-I < 0.01 ng/mL (0.0-0.30)
[2018-05-07 18:56] VITALS: BP 153/65
== END 2018-05-07 18:57 | disposition home or self-care (01) ==
LOC: EME 16:35
DX: R07.9 Chest pain, unspecified (principal); D86.9 Sarcoidosis, unspecified; F41.9 Anxiety disorder, unspecified; J45.909 Unspecified asthma, uncomplicated; I10 Essential (primary) hypertension; K21.9 Gastro-esophageal reflux disease without esophagitis; G47.30 Sleep apnea, unspecified; E66.01 Morbid (severe) obesity due to excess calories; Z68.44 Body mass index [BMI] 60.0-69.9, adult; K31.84 Gastroparesis; F32.9 Major depressive disorder, single episode, unspecified; E55.9 Vitamin D deficiency, unspecified; Z88.0 Allergy status to penicillin; Z88.8 Allergy status to other drugs, medicaments and biological substances
CPT/HCPCS: 71046; 80048; 84484; 85027; 93005; 99281; 99284

== ENCOUNTER 2018-05-21 18:35 | Emergency (ER) | payer OTHER ==
[~2018-05-21] VITALS: Ht 180.3 cm; Wt 224.5 kg
[2018-05-21 20:14] VITALS: BP 181/95
== END 2018-05-21 20:15 | disposition home or self-care (01) ==
LOC: EXP 18:35 → EME 18:35 → EXP 20:15
DX: S40.262A Insect bite (nonvenomous) of left shoulder, initial encounter (principal); W57.XXXA Bitten or stung by nonvenomous insect and other nonvenomous arthropods, initial encounter; I10 Essential (primary) hypertension; E78.5 Hyperlipidemia, unspecified; E66.9 Obesity, unspecified; Z88.0 Allergy status to penicillin; Z88.8 Allergy status to other drugs, medicaments and biological substances
CPT/HCPCS: 99281; 99283

== ENCOUNTER 2018-07-08 20:20 | Emergency (ER) | payer OTHER ==
[~2018-07-08] VITALS: Ht 180.3 cm; Wt 224.0 kg
[2018-07-08 21:22] LABS: HEMATOCRIT 38.9 % (38.0-50.0); HEMOGLOBIN 12.7 G/DL (12.5-16.6); MCH 25.8 PG (29.0-34.0); MCHC 32.6 G/DL (30.0-36.0); MCV 79.1 FL (86-99); PLATELET COUNT 203 K/uL (156-360); RBC DIS.WIDTH-CV 15.7 % (11.8-14.6); RBC DIS.WIDTH-SD 44.7 % (39-53); RED BLOOD COUNT 4.92 M/uL (4.00-5.50); WHITE BLOOD COUNT 9.1 K/uL (4.1-10.2)
[2018-07-08 21:39] LABS: CHLORIDE 105 mEq/L (99-109); POTASSIUM 3.8 mEq/L (3.7-5.4); SODIUM 139 mEq/L (136-147)
[2018-07-08 21:41] LABS: GLUCOSE 129 mg/dL (70-99)
[2018-07-08 21:45] LABS: CREATININE 1.2 mg/dL (0.6-1.3); GFR ESTIMATE (CALCULATED) > 59 mL/min/ (58.99-99999)
[2018-07-08 21:46] LABS: UREA NITROGEN (BUN) 13 mg/dL (9-23)
[2018-07-08 21:48] LABS: TROP-I INTERPRETATION NEGATIVE; TROPONIN-I < 0.01 ng/mL (0.0-0.30)
[2018-07-09 01:20] LABS: TROP-I INTERPRETATION NEGATIVE; TROPONIN-I < 0.01 ng/mL (0.0-0.30)
[2018-07-09] MEDS ORDERED: INDOCIN50 MG PO (01:27)
[2018-07-09 02:05] VITALS: BP 161/99
== END 2018-07-09 02:05 | disposition home or self-care (01) ==
LOC: EME 20:20
PROVIDERS: Physician Assistant
DX: R07.89 Other chest pain (principal); E66.01 Morbid (severe) obesity due to excess calories; Z68.44 Body mass index [BMI] 60.0-69.9, adult; D86.9 Sarcoidosis, unspecified; R03.0 Elevated blood-pressure reading, without diagnosis of hypertension; F32.9 Major depressive disorder, single episode, unspecified; F41.9 Anxiety disorder, unspecified; J45.909 Unspecified asthma, uncomplicated; K21.9 Gastro-esophageal reflux disease without esophagitis; Z88.0 Allergy status to penicillin; Z88.8 Allergy status to other drugs, medicaments and biological substances
CPT/HCPCS: 71046; 80048; 84484; 85027; 85379; 93005; 99281; 99284